=== PATIENT | male | born 1950 | race Caucasian/White ===

== ENCOUNTER 2018-01-30 11:43 | Emergency (ER) | payer MEDICARE, SELFPAY ==
[2018-01-30 11:44] VITALS: BP 148/89; PULSE 87; RESP 16; TEMP 36.7; O2SAT 97; BMI 25.7
[2018-01-30] MEDS: oxyCODONE 5 MG Tablet PO (12:41)
--- NOTE | 2018-01-30 12:50 | RAD_ITS ---
STUDY: X-RAY - LEFT FEMUR REASON FOR STUDY: Male, 67 years old. Leg pain and thigh pain. TECHNIQUE: Radiological exam, femur, minimum 2 views COMPARISON: None. FINDINGS: Normal visualized femur. Vascular calcification. RAD/Femur Min 2 Views IMPRESSION: No acute abnormality is seen. Electronically Signed: Mike Pierson MD at 13:08 EDT Tel [phone], Service support ,
--- NOTE | 2018-01-30 13:59 | ED.DCSUM_ITS ---
- ER Visit Summary Date of Service: 01/30/18 Chief Complaint: Left thigh pain History of Present Illness: The patient is a 67 M with left thigh pain for the past 5 days. Patient states last week he felt a funny sensation in his left lower back. Over the past 3-5 days he has now had intermittent shooting pain over the left anterior thigh. It does seem to be worse with movement. Patient was seen by his chiropractor but was encouraged to come to the emergency room. Although history in the computer lists AAA, patient was seen by Dr. Ngo in August of this year with no evidence of AAA being found on workup. Physical Examination: Vital signs are unremarkable. Patient sitting upright in bed no acute distress. Head neck examination is normal. Heart is regular rate and rhythm. Lung sounds are clear. Abdomen is soft and nontender. No masses appreciated. Back examination reveals no reproducible tenderness in the midline, paraspinals , or over the sciatic notch. Lower external examination reveals no reproducible tenderness over the thigh. He has full range of motion without difficulty. He has strong equal distal pulses. Test Results: Left femur x-rays show no evidence of acute abnormality. Emergency Department Course and Treatment: Patient was given 1 tab of oxycodone and Flexeril here. On repeat evaluation he does feel improved. I suspect the patient likely has sciatica with the portion of the nerve over the anterior thigh being irritated. He will be given prescriptions for oxycodone and Flexeril. Treatment Plan: [] Disposition: Discharge Impression: Left thigh pain, suspect sciatica This note was generated with [employer] dictation software. It may contain incorrect words, spelling, and punctuation that were not noted in review of the chart prior to signing ED Disposition - Plan for ED Patient: Chief Complaint: Lower Extremity Injury Referrals: Bhavesh Delgado MD [Primary Care Provider] -
--- NOTE | 2018-01-30 13:59 | ED.DEP ---
ED Disposition - Plan for ED Patient: Disposition: Home or Assisted Living Chief Complaint: Lower Extremity Injury Instructions: ED Sciatica Prescriptions: Oxycodone HCl/Acetaminophen [Percocet 5/325] 1 tablet PO Q6H PRN PRN 3 Days #12 tablet PRN Reason: Pain Cyclobenzaprine [Flexeril] 10 mg PO TID PRN #20 tab PRN Reason: Muscle Spasm Referrals: Bhavesh Delgado MD [Primary Care Provider] - 5-7 Days
[2018-01-30 14:14] VITALS: BP 143/83; PULSE 78; RESP 15; RESP 78; O2SAT 97
== END 2018-01-30 14:16 | disposition home or self-care (01) ==
PROVIDERS: Emergency Provider Emergency Medicine; Family Provider Family Medicine; PCP Family Medicine
DX: M79.652 Pain in left thigh (principal); I10 Essential (primary) hypertension; E78.00 Pure hypercholesterolemia, unspecified; Z79.82 Long term (current) use of aspirin; Z79.899 Other long term (current) drug therapy; Z72.0 Tobacco use
CPT/HCPCS: 73552; 99283

== ENCOUNTER → 2018-07-04 07:03 | Outpatient (CLI) | payer MEDICARE, SELFPAY ==
[2018-07-04 10:39] LABS: Anion Gap 9 (5-15); BUN 15 mg/dL (7-18); BUN/Creat Ratio 15.2 RATIO (10-20); Calcium,Total 9.1 mg/dL (8.5-10.1); Chloride 106 mmol/L (98-107); Cholesterol 178 mg/dL (200); Creatinine, Serum 0.99 mg/dL (0.70-1.30); EST Glomerular Filtration Rate 81 mL/min (>60); Est Glom Filt Rate - Afr Amer 98 mL/min (>60); Glucose 96 mg/dL (74-106); High Density Lipoprotein 51 mg/dL; PSA,Total - Annual Screen 1.42 ng/mL (0.00-4.00); Sodium Level 141 mmol/L (136-145); Triglycerides 98 mg/dL; Very Low Density Lipoprotein 20 mg/dL (5-40)
--- OUTSIDE RECORDS SUMMARY | 2018-08-29 11:44 | XMS RPT_ITS ---
:1950 Author Organization OHIP Care Team Providers Name Role Phone Alma De Los Santos Attending Unavailable De Los Santos, Alma Referring Unavailable De Los Santos, Alma Primary Care Unavailable De Los Santos, Alma Primary Care Unavailable Lillian Marks Attending Unavailable Cebul, Tai Attending Unavailable Cebul, Tai Attending Unavailable Cebul, Tai Attending Unavailable De Los Santos, Alma Referring Unavailable De Los Santos, Alma Primary Care Unavailable Cebul, Tai Attending Unavailable Cebul, Tai Referring Unavailable De Los Santos, Alma Primary Care Unavailable PROBLEMS PROBLEMS DATE TYPE CONDITION / CODE ATTENDING STATUS SOURCE 07/16/2018 Unknown I10 - Essential Alma De Los Santos Active [facility] (primary) Community hypertension / Hospital I10(ICD-10) Repository 01/30/2018 Unknown M54.30 - Sciatica, Lillian Marks Active [facility] unspecified side / Community M54.30(ICD-10) Hospital Repository 08/30/2017 Unknown I71.4 - Abdominal Cebul, Tai Active [facility] aortic aneurysm, Community without rupture / Hospital I71.4(ICD-10) Repository 10/12/2017 Unknown I65.23 - Occlusion Cebul, Tai Active [place] and stenosis of [facility] bilateral carotid Hospital arteries / Repository I65.23(ICD-10) 10/05/2017 Unknown 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, 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 LAB L501.1000 7-18 mg/dL Normal BUN 15 LAB L501.1100 0.70-1.30 mg/dL Normal CREAT,SERUM 0.99 Result Comment: The validity of the calculated GFR AND GFRAA in patients over 70 years has not been determined. Clinical correlation is essential. LAB L501.1110 >60 mL/min Normal EST GFR 81 Result Comment: Non- GFR Calc LAB L501.1115 >60 mL/min Normal EST GFR - AA 98 Result Comment: GFR Calc LAB L501.1300 10-20 RATIO Normal BUN/CRE 15.2 LAB L501.2200 8.5-10.1 mg/dL CA Normal 9.1 LAB L501.5300 136-145 mmol/L NA Normal 141 LAB L501.5600 3.5-5.1 mmol/L K Normal 4.0 LAB L501.5900 98-107 mmol/L CL Normal 106 LAB L501.6100 21.0-32.0 mmol/L Normal CO2 26.0 LAB L501.6200 5-15 Normal GAP 9 Performed By: #### L500.2500, L500.4100, L501.9910 #### [facility] [address] [place], [address] LIPID PROFILE Collected: 07/04/2018 Status: F Source: [place] 7:08 AM REPOSITORY Order Comment: Order Date: 01/04/18 Order Info: 0667-1 - BMP Order Info: 33414-0 - LIPID Order Info: 2857-1 - PSA TYPE CODE TESTS RESULT OUT OF RANGE REFERENCE UNITS LAB L501.4900 200 mg/dL Normal CHOL 178 Result Comment: <200 mg/dL Desirable 200-240 mg/dL Borderline >240 mg/dL High Risk LAB L501.5000 mg/dL Normal TRIG 98 Result Comment: The drugs N-Acetylcysteine and Metamizole may falsely depress this assay. Serum Triglycerides Reference Interval Normal <150 mg/dL Borderline high 150 - 199 mg/dL High 200 - 499 mg/dL Very High > or = 500 mg/dL LAB L501.6400 mg/dL Normal HDL 51 Result Comment: The drugs N-Acetylcysteine and Metamizole may falsely depress this assay. Reference Range HDL <40 mg/dL Low HDL Cholesterol HDL >or= 60 mg/dL High HDL Cholesterol LAB L501.6500 0-130 mg/dL Normal LDL 107 LAB L501.6600 5-40 mg/dL Normal VLDL 20 Performed By: #### L500.2500, L500.4100, L501.9910 #### [facility] [address] [place], [address] PSA,TOTAL - ANNUAL Collected: 07/04/2018 Status: F Source: [place] SCREEN 7:08 AM REPOSITORY Order Comment: Order Date: 01/04/18 Order Info: 0667-1 - BMP Order Info: 10363-5 - LIPID Order Info: 2857-1 - PSA TYPE CODE TESTS RESULT OUT OF RANGE REFERENCE UNITS LAB L501.9910 0.00-4.00 ng/mL Normal PSA,TOT 1.42 SCREEN Result Comment: This test was performed using the TPSA assay method for the Nimble chemistry system. Values obtained with different assay methods cannot be used interchangably. When changing PSA assays in the course of monitoring a patient, additional sequential testing should be carried out to confirm baseline values. Performed By: #### L500.2500, L500.4100, L501.9910 #### [facility] [address] [place], [address] EMERGENCY DEPARTMENT Observed: 01/30/2018 Status: F Source: [facility] SUMMARY 6:06 PM REPOSITORY [facility] Medical Records Department [address] [place] [address] Emergency Department Summary 01/30/18 1357 MR#: [id number] Acct: [id number] Name: DARREL MORAN Rep #: [id number] : 1950 67 From: Lillian Marks MD PCP: Alma De Los Santos MD Status: DEP ER - ER Visit Summary Date of Service: 01/30/18 Chief Complaint: Left thigh pain History of Present Illness: The patient is a 67 M with left thigh pain for the past 5 days. Patient states last week he felt a funny sensation in his left lower back. Over the past 3-5 days he has now had intermittent shooting pain over the left anterior thigh. It does seem to be worse with movement. Patient was seen by his chiropractor but was encouraged to come to the emergency room. Although history in the computer lists AAA, patient was seen by Dr. Ngo in August of this year with no evidence of AAA being found on workup. Physical Examination: Vital signs are unremarkable. Patient sitting upright in bed no acute distress. Head neck examination is normal. Heart is regular rate and rhythm. Lung sounds are clear. Abdomen is soft and nontender. No masses appreciated. Back examination reveals no reproducible tenderness in the midline, paraspinals, or over the sciatic notch. Lower external examination reveals no reproducible tenderness over the thigh. He has full range of motion without difficulty. He has strong equal distal pulses. Test Results: Left femur x-rays show no evidence of acute abnormality. Emergency Department Course and Treatment: Patient was given 1 tab of oxycodone and Flexeril here. On repeat evaluation he does feel improved. I suspect the patient likely has sciatica with the portion of the nerve over the anterior thigh being irritated. He will be given prescriptions for oxycodone and Flexeril. Treatment Plan: [] Disposition: Discharge Impression: Left thigh pain, suspect sciatica This note was generated with [email or web address] dictation software. It may contain incorrect words, spelling, and punctuation that were not noted in review of the chart prior to signing ED Disposition - Plan for ED Patient: Chief Complaint: Lower Extremity Injury Referrals: Alma De Los Santos MD [Primary Care Provider] - What to do if you have Problems For any increased pain, shortness of breath, bleeding, nausea or vomiting, chest pain, or any unexpected problems, contact your Primary Care Provider. Call [email or web address] ([phone]) or report to the closest Emergency Room. Call 911 if necessary. 01/30/18 0448 <Electronically signed by Lillian Marks MD> Date Lillian Marks MD Cosigner Signature (If Indicated): Date CC: Alma De Los Santos MD DISCHARGE INSTRUCTION Observed: 01/30/2018 Status: F Source: [place]IS[place] 2:01 PM REPOSITORY [facility] Medical Records Department [address] [place] [address] Discharge Instruction 01/30/18 1359 MR#: [id number] Acct: [id number] Name: DARREL MORAN Rep #: [id number] : 1950 67 From: Lillian Marks MD PCP: Alma De Los Santos MD Status: REG ER ED Disposition - Plan for ED Patient: Disposition: Home or Assisted Living Chief Complaint: Lower Extremity Injury Instructions: ED Sciatica Prescriptions: Oxycodone HCl/Acetaminophen [Percocet 5/325] 1 tablet PO Q6H PRN PRN 3 Days #12 tablet PRN Reason: Pain Cyclobenzaprine [Flexeril] 10 mg PO TID PRN #20 tab PRN Reason: Muscle Spasm Referrals: Alma De Los Santos MD [Primary Care Provider] - 5-7 Days What to do if you have Problems For any increased pain, shortness of breath, bleeding, nausea or vomiting, chest pain, or any unexpected problems, contact your Primary Care Provider. Call [facility] ([phone]) or report to the closest Emergency Room. Call 911 if necessary. 01/30/18 1401 <Electronically signed by Lillian Marks MD> Date Lillian Marks MD Cosigner Signature (If Indicated): Date CC: Alma De Los Santos MD FEMUR MIN 2 VIEWS Observed: 01/30/2018 Status: F Source: [facility]ISCO 12:24 PM REPOSITORY [facility] Imaging Services [address] [place] [address] Femur Min 2 Views MR#: [id number] Acct: [id number] Name: DARREL MORAN Rep #: [id number] : 1950 M 67 From: Mike Pierson MD PCP: Alma De Los Santos MD Status: REG ER Study: Femur Min 2 Views Date of Exam: 01/30/18 Exam# [id number] Ordering Dr: Lillian Marks MD STUDY: X-RAY - LEFT FEMUR REASON FOR STUDY: Male, 67 years old. Leg pain and thigh pain. TECHNIQUE: Radiological exam, femur, minimum 2 views COMPARISON: None. FINDINGS: Normal visualized femur. Vascular calcification. RAD/Femur Min 2 Views IMPRESSION: No acute abnormality is seen. Electronically Signed: Mike Pierson MD at 13:08 EDT Tel [phone], Service support , CC: Lillian Marks MD; Alma De Los Santos MD Cosmetic Sales Assistant: Signed SURGERY VISIT REPORT Observed: 08/31/2017 Status: F Source: [place] 11:13 AM [facility] [address] [place] [address] OFFICE VISIT Date of Service: 08/31/17 MR#: [id number] Acct: [id number] Name: DARREL MORAN Rep #: [id number] : 1950 Provider: Tai Wolff MD Age/Sex: 67/M Location: [facility] Status: Signed Intake Vital Signs08/31/17 Height 5 ft 6 in 08/31/17 Weight: 168 lb 08/31/17 Body Mass Index (BMI) 27.1 Intake Visit Reasons: AAA/ carotid yearly Director Digital Strategy Required: No Is patient in pain?: No Allergies No Known Allergies Allergy (Unverified 08/31/17 09:07) Medications ascorbic acid (vitamin C) 500 mg capsule mg PO 08/31/17 [History Confirmed 08/31/17] aspirin 81 mg tablet,delayed release 81 mg PO QDAY 08/31/17 [History Confirmed 08/31/17] atorvastatin 40 mg tablet 40 mg PO QDAY 08/31/17 [History Confirmed 08/31/17] benazepril 20 mg tablet 20 mg PO QDAY 08/31/17 [History Confirmed 08/31/17] cholecalciferol (vitamin D3) 1,000 unit capsule 1,000 unit PO ONCE 08/31/17 [History Confirmed 08/31/17] fish yxs--txp C-vit E 2,000 mg-650 mg-12 mg/2.5 g emulsion packt g PO 08/31/17 [History Confirmed 08/31/17] multivitamin capsule 1 cap PO QAM 08/31/17 [History Confirmed 08/31/17] PFSH Medical History AAA (abdominal aortic aneurysm) (Acute) Carotid stenosis, right (Acute) Hyperlipidemia (Acute) HTN (hypertension) (Chronic) Surgical History History of carotid angioplasty (Acute) Family History Father Heart disease Hypertension Mother Hypertension CAD (coronary artery disease) Social History Smoking Status: Current every day smoker alcohol intake: current alcohol intake frequency: holidays/special occasions only HPI HPI HPI: DARREL MORAN, is a 67 M who presents to the office today for surgical follow-up. He has had a previous right carotid endarterectomy. My most recent office visit with him was . On August 30, 2017 he had carotid duplex imaging and aortic duplex imaging at the [facility]. There is no evidence for any abdominal aortic aneurysm. The carotid duplex imaging demonstrates a chronically occluded left internal carotid. The patient has had a previous stroke in approximately 2005 with visual changes on the left. The patient has had a previous right carotid endarterectomy. On the current duplex imaging that right carotid bulb and internal carotid is widely patent. There is a moderate amount of irregular exophytic plaque within the right common carotid artery. This has been noted before but appeared to be rather prominent. Since the patient's previous office visit he has not had any neurologic change. He is currently in the midst of a divorce. He was strongly advised previously to cease his tobacco use. He is still smoking cigarettes at least at the rate of a half a pack per day ROS General General: No weight change, appetite, fatigue, colon cancer, breast cancer or weakness HEENT HEENT: No difficulty swallowing, eye injury, eye surgery, swollen glands or hoarseness Endo Endocrine: No thyroid disease, diabetes mellitus, thyroid cancer, Hair loss, heat intolerance or cold intolerance Skin Skin: No rash or changing moles Breast Breast: No left breast lump, right breast lump, nipple discharge, breast pain, abnormal mammogram, abnormal US or breast enlargement Musc Musculoskeletal: No back problems, arthritis, rheumatoid arthritis, gout or joint pain Cardio Cardiovascular: Yes high blood pressure; no murmur, pacemaker, heart disease, atrial fibrillation, heart attack, heart stent, palpitations, shortness of breat with exertion or chest pain Psych Psychiatric: No depression, anxiety or hearing voices Resp Respiratory: No shortness of breath, No sleep apnea, No cough, No COPD, No asthma, No emphysema, No wheezing Gastro Gastrointestinal: No abdominal pain, No nausea or vomiting, No diarrhea, No constipation, No blood in stool, No acid reflux, No hemorrhoids, No ulcers, No gallbladder problem, No black,tarry stools Juan Manuel Hematologic: No blood thinners, No blood disorders, No bleeding, No anemia, No blood clots Neuro Neurologic: No weakness Exam Neck Other: Well-healed surgical incision right neck. 3+ carotid pulses bilaterally 3/6 bruit on the left. 2/6 bruit on the right Chest Breast Palpation: No nipple discharge Cardio Rate: regular rate Rhythm: regular rhythm Heart Sounds: no murmurs Pulses: radial pulses present, femoral pulses present GI Palpation: soft, no hepatosplenomegaly, no pulsatile masses Other: No abdominal bruit Neuro Other: Patient is alert aware of his situation and place. He appears grossly neurologically intact Assessment AND Plan 1. Carotid occlusion, left I65.22 Plan Most of today's appointment was discussing maximization of his medical care I have instructed the patient of the finding of the right common carotid exophytic plaque. I do not believe that this can be addressed surgically. If this required addressing then I would recommend referral for carotid artery stenting. Based upon duplex imaging it does not fit stenosis criteria. The patient remains asymptomatic and unchanged from his previous office visit Most of this 25 minute [id number] appointment was in discussing maximization of his medical care. This included items like diet and exercise and hypertension management and hyperlipidemia management and cessation of tobacco and stress reduction He has had an opportunity to ask and have questions answered. He has no evidence of an abdominal aortic aneurysm and routine screening of his aorta will not be required at this time. I do recommend follow-up carotid duplex imaging at 1 year because of his common carotid plaque. The patient has had an opportunity to ask and have questions answered. He is aware that I will copy his primary care physician Dr. Alma De Los Santos with our discussion as well. I have strongly advised the patient cease his tobacco use. Cc: Dr. Alma Wolff M.D., F.A.C.S. Coding Level of Care Code Off vis,est,level 3 Diagnoses Carotid occlusion, left I65.22 08/31/17 1113 <Electronically signed by Tai Wolff MD> Date Tai Wolff MD Cosigner Signature: Date (if applicable) CC: Alma De Los Santos MD AAA SCREENING Observed: 08/30/2017 Status: F Source: [place] 5:11 PM REPOSITORY [facility] Cardiovascular Services [address] [place] [address] AAA Screening 08/30/17921 MR#: [id number] Acct: [id number] Name: DARREL MORAN Rep #: [id number] : 1950 67 From: Tai Wolff MD Attending Dr: Tai Wolff MD Status: REG CLI Ordering Dr: Tai Wolff MD Date: 08/30/17 Location: CVS Sex: M C Admitted: Reason For Study: AAA Aorta Measurements Aorta Doppler Measurements Proximal aorta measures1.54 X 1.99cm. in cross- Peak systolic flow velocities within the proximal sectional axis. aorta measure 82 cm/sec. Proximal aorta measures1.77cm. in longitudinal Peak systolic flow velocities within the mid axis. aorta measure 64 cm/sec. Mid aorta measures1.57 X 1.69cm. in cross- Peak systolic flow velocities within the distal sectional axis. aorta measure 67 cm/sec. Mid aorta measures1.65cm. in longitudinal axis. Distal aorta measures1.33 X 2.0cm. in cross- sectional axis. Distal aorta measures1.37cm. in longitudinal axis. Left Iliac Artery Left iliac artery measures .857 X .746 cm. in the longitudinal axis. Left iliac artery measures .995 cm. in the cross-sectional axis. Peak systolic velocity in the left iliac artery measures 267 cm/sec. Right Iliac Artery Right iliac artery measures .73 X .97 cm. in the longitudinal axis. Right iliac artery measures 1.15 cm. in the cross-sectional axis. Peak systolic velocity in the right iliac artery measures 88 cm/sec. Interpretation Summary No evidence for an abdominal aortic aneurysm wiht maximum diameter of 1.57 x 1.69cm Normal aortic flow Normal flow right iliac artery Moderate disease left iliac artery Ordering Physician: Tai Wolff Referring Physician: ALMA DE LOS SANTOS Performed By: Aria Gregg, RDCS, RVT 08/30/171710 Date Tai Wolff MD CC: Alma De Los Santos MD; Tai Wolff MD Date Dictated: 08/30/17921 Date Transcribed: 08/30/171710 Cosmetic Sales Assistant: Signed CAROTID DUPLEX Observed: 08/30/2017 Status: F Source: [place] ULTRASOUND 5:05 PM REPOSITORY [facility] Cardiovascular Services [address] [place] [address] Carotid Duplex Ultrasound 08/30/17 0944 MR#: [id number] Acct: [id number] Name: DARREL MORAN Rep #: [id number] : 1950 67 From: Tai Wolff MD Attending Dr: Tai Wolff MD Status: REG CLI Ordering Dr: Tai Wolff MD Date: 08/30/17 Location: [facility] Sex: M C Admitted: Reason For Study: CAROTID STENOSIS Rt. Velocities/BP Lt. Velocities/BP Prox CCA 88/25 cm/sec. Prox CCA 42/10 cm/sec. Mid CCA 59/17 cm/sec. Mid CCA 67/15 cm/sec. Dist CCA 67/20 cm/sec. Dist CCA 30/9 cm/sec. Prox ICA 75/30 cm/sec. Prox ECA 398/110 cm/sec. Mid ICA 94/38 cm/sec. Lt. Vert. 24/12 cm/sec. Dist ICA 101/46 cm/sec. Rt. ICA/CCA = 1.7. Prox ECA 93/20 cm/sec. Rt. Vert. 37/12 cm/sec. Right Extracranial There is homogeneous, smooth atherosclerotic plaque noted in the right common carotid artery. There is heterogeneous, irregular atherosclerotic plaque noted in the right common carotid artery. There is heterogeneous, smooth atherosclerotic plaque noted in the right internal carotid artery. There is homogeneous, smooth atherosclerotic plaque noted in the right external carotid artery. Antegrade flow is noted in the right vertebral artery. Left Extracranial There is homogeneous, smooth atherosclerotic plaque noted in the left common carotid artery. The left internal carotid artery is occluded. There is heterogeneous, irregular atherosclerotic plaque noted in the left external carotid artery. Antegrade flow is noted in the left vertebral artery. Procedure Carotid Duplex 45982. Exam performed in department. Interpretation Summary Extensive focal irregular plague at the proximal right common carotid Widely patent right carotid bulb and proximal internal carotid with <50% stenosis. Normal flow right external carotid Occluded left internal carotid. Severe stenosis left external carotid Patent and antegrade vertebrals bilaterally Ordering Physician: Tai Wolff Referring Physician: ALMA DE LOS SANTOS Performed By: Aria Gregg, POPEYE, RVT 08/30/171704 Date Tai Wolff MD CC: Alma De Los Santos MD; Tai Wolff MD Date Dictated: 08/30/1744 Date Transcribed: 08/30/171704 Cosmetic Sales Assistant: Signed ALLERGIES ALLERGIES DATE TYPE / CODE NAME / CODE REACTION SEVERITY SOURCE 01/30/2018 Drug No Known Unknown [facility] Allergy/4160 Allergies/F00 Hospital 39823(SNOMED 8201387(RXNOR Repository CT) M) ENCOUNTERS ENCOUNTERS ADMIT/DISCHARGE ACCOUNT ADMITTING ENCOUNTER LOCATION SOURCE NUMBER CLASS 07/04/2018 [id number] Ambulatory [place] 0 [facility] ing:MTLAB Repository 01/30/2018/ [id number] Emergency [place] 8 3 [facility] ing:ED Repository 08/31/2017/ [id number] Ambulatory BMSBuilding:B [facility] 8 3 MS.Pending sale to [facility] Repository 08/30/2017 [id number] Ambulatory [place] 6 [facility] ing:CVS Repository 08/30/2017 [id number] Ambulatory BMSBuilding:B [facility] 9 MS.CF.Pending sale to [facility] Repository 08/30/2017 [id number] Ambulatory BMSBuilding:B [facility] 8 MS.CF.Pending sale to [facility] Repository PAYERS PAYERS ENCOUNTER GUARANTOR PAYER SUBSCRIBER SOURCE 07/04/2018 DARREL Gotti Primary Insurance:MMO DARREL A [facility] [id number] MEDICAREPolicy SWIGARTDOB: [facility] Number: [id number] [id number] Repository [address]Qln: (330) Date:9434-47-44ME [phone] () [address] [place] [phone]: 07/04/2018 Secondary NOT GIVENUNK [facility] Insurance:SELF PAY [facility] Number: Effective Repository Date:2018-07-04 01/30/2018 DARREL A Primary Insurance:MMO DARREL Gotti [place] [id number] MEDICAREPolicy SWIGARTDOB: [facility] Number: [id number] [place], [place] [id number] Repository [address]Ici: (330) Date:6396-69-72PB [phone] (HP) [address] [place] [phone]: 01/30/2018 Secondary NOT GIVENUNK [facility] Insurance:SELF PAY [facility] Number: Effective Repository Date:2018-01-30 08/31/2017 DARREL A Primary Insurance:MMO DARREL Gotti [place] [id number] MEDICAREPolicy SWIGARTDOB: [facility] Number: [id number] [place], [place] [id number] Repository [address]Kml: (330) Date:8531-13-80NP [phone] () [address] [place] [phone]: 08/31/2017 Secondary NOT GIVENUNK [place] Insurance:SELF PAY [facility] Number: Effective Repository Date:2017-08-17 08/30/2017 DARREL A Primary Insurance:MMO DARREL Gotti [place] [id number] MEDICAREPolicy SWIGARTDOB: [facility] Number: [id number] City, [place] [id number] Repository [address]Cdj: (330) Date:2823-80-15EF [phone] (HP) [address], [place] [address]TX: 08/30/2017 Secondary NOT GIVENUNK [place] Insurance:SELF PAY [facility] Number: Effective Repository Date:2017-08-17 08/30/2017 DARREL A Primary Insurance:MMO DARREL [place] [id number] MEDICAREPolicy SWIGARTDOB: [facility] Number: [id number] City, [place] [id number] Repository [address]Zis: (330) Date:2350-66-46MY [phone] () [address], [place] [phone]: 08/30/2017 Secondary NOT GIVENUNK [place] Insurance:SELF PAY [facility] Number: Effective Repository Date:2017-08-30 08/30/2017 DARREL A Primary Insurance:MMO DARREL [place] [id number] MEDICAREUnited [facility] Number: [id number] [place], [place] [id number] Repository [address]Oiq: (330) Date:6838-23-79NN [phone] () [address], [place] [address]TU: 08/30/2017 Secondary NOT GIVENUNK [place] Insurance:SELF PAY [facility] Number: Effective Repository Date:2017-08-30
== END ==
PROVIDERS: Family Provider Family Medicine; PCP Family Medicine; Referring Provider Family Medicine; Visit Provider Family Medicine
DX: I10 Essential (primary) hypertension (principal); E78.00 Pure hypercholesterolemia, unspecified; Z12.5 Encounter for screening for malignant neoplasm of prostate
CPT/HCPCS: 36415; 80048; 80061; 84153; G0103

== ENCOUNTER → 2019-10-03 07:06 | Outpatient (CLI) | payer MEDICARE, SELFPAY ==
[2019-10-03 10:17] LABS: Anion Gap 5 (5-15); BUN 19 mg/dL (7-18); BUN/Creat Ratio 17.8 RATIO (10-20); Chloride 108 mmol/L (98-107); Cholesterol 169 mg/dL (200); Creatinine, Serum 1.07 mg/dL (0.70-1.30); EST Glomerular Filtration Rate 73 mL/min (>60); Est Glom Filt Rate - Afr Amer 89 mL/min (>60); Glucose 107 mg/dL (74-106); High Density Lipoprotein 48 mg/dL; PSA,Total - Annual Screen 1.34 ng/mL (0.00-4.00); Potassium 3.9 mmol/L (3.5-5.1); Sodium Level 138 mmol/L (136-145); Triglycerides 74 mg/dL; Very Low Density Lipoprotein 15 mg/dL (5-40)
== END ==
PROVIDERS: PCP Family Medicine; Referring Provider Family Medicine; Visit Provider Family Medicine
DX: I10 Essential (primary) hypertension (principal); Z12.5 Encounter for screening for malignant neoplasm of prostate; E78.00 Pure hypercholesterolemia, unspecified
CPT/HCPCS: 36415; 80048; 80061; 84153; G0103

== ENCOUNTER → 2020-01-29 07:45 | Outpatient (CLI) | payer MEDICARE, SELFPAY ==
--- NOTE | 2020-01-29 07:46 | CDU_ITS ---
Reason For Study: carotid stenosis Rt. Velocities/BP Lt. Velocities/BP Prox CCA 81.2/17.3 cm/sec. Prox CCA 57.5 cm/sec. Mid CCA 102.1/25.2 cm/sec. Mid CCA 35.5/8.0 cm/sec. Dist CCA 99.5/26.5 cm/sec. Dist CCA 17.3/4.5 cm/sec. Prox ICA 38.1/9.7 cm/sec. Prox ECA 441.8/115.4 cm/sec. Mid ICA 85.3/29.6 cm/sec. Lt. Vert. 35.7/13.0 cm/sec. Dist ICA 103.6/36.6 cm/sec. Rt. ICA/CCA = 1.0. Prox ECA 111.2/20.0 cm/sec. Rt. Vert. 47.6/16.8 cm/sec. Right Extracranial There is heterogeneous, smooth atherosclerotic plaque noted in the right common carotid artery. There is heterogeneous, irregular atherosclerotic plaque noted in the right internal carotid artery. There is homogeneous, smooth atherosclerotic plaque noted in the right external carotid artery. Antegrade flow is noted in the right vertebral artery. Left Extracranial There is heterogeneous, smooth atherosclerotic plaque noted in the left common carotid artery. The left internal carotid artery is occluded. There is heterogeneous, irregular atherosclerotic plaque noted in the left external carotid artery. Antegrade flow is noted in the left vertebral artery. Procedure Carotid Duplex 56473. The exam was diagnostic. Exam performed in department. Interpretation Summary Irregular heterogenous plaque at the proximal right internal carotid artery with less than 50% stenosis. <50% stenosis right external carotid Occluded left internal carotid artery >50% stenosis left external carotid Patent and antegrade vertebral arteries bilaterally No change from August 30, 2017 Ordering Physician: Tai Wolff Performed By: Emmy, Drew, RVT
== END ==
PROVIDERS: PCP Family Medicine; Referring Provider Surgery; Visit Provider Surgery
DX: I65.22 Occlusion and stenosis of left carotid artery (principal)
CPT/HCPCS: 93880

== ENCOUNTER → 2021-03-04 07:01 | Outpatient (CLI) | payer MEDICARE, SELFPAY ==
[2021-03-04 10:46] LABS: ALB/GLOB Ratio 0.9 RATIO (0.9-2.4); AST(SGOT) 17 U/L (15-37); Alanine Aminotransfer ALT/SGPT 30 U/L (16-61); Albumin, Serum 3.5 g/dL (3.2-5.0); Alkaline Phosphatase 109 U/L (45-117); Anion Gap 8 (5-15); BUN 13 mg/dL (7-18); BUN/Creat Ratio 12.3 RATIO (10-20); Calcium,Total 8.8 mg/dL (8.5-10.1); Chloride 103 mmol/L (98-107); Cholesterol 167 mg/dL (200); Creatinine, Serum 1.06 mg/dL (0.70-1.30); EST Glomerular Filtration Rate 74 mL/min (>60); Est Glom Filt Rate - Afr Amer 89 mL/min (>60); Globulin 3.9 g/dL (2.2-4.2); Glucose 98 mg/dL (74-106); High Density Lipoprotein 44 mg/dL; PSA,Total - Annual Screen 1.19 ng/mL (0.00-4.00); Potassium 4.5 mmol/L (3.5-5.1); Protein, Total 7.4 g/dL (6.4-8.2); Sodium Level 138 mmol/L (136-145); Triglycerides 114 mg/dL; Very Low Density Lipoprotein 23 mg/dL (5-40)
== END ==
PROVIDERS: PCP Family Medicine; Referring Provider Family Medicine; Visit Provider Family Medicine
DX: I10 Essential (primary) hypertension (principal); Z12.5 Encounter for screening for malignant neoplasm of prostate
CPT/HCPCS: 36415; 80053; 80061; 84153; G0103

== ENCOUNTER 2021-08-13 13:38 | Outpatient (CLI) | payer MEDICARE, SELFPAY ==
[2021-08-13 13:47] VITALS: BP 151/83; PULSE 85; RESP 16; TEMP 36.5; O2SAT 98; BMI 25.8
[2021-08-13] MEDS: 0.9% Saline Lock 10 ML Syringe IV (13:55)
[2021-08-13 14:17] VITALS: BP 152/77; PULSE 77; RESP 16; TEMP 36.6; O2SAT 98
[2021-08-13 15:02] VITALS: BP 153/92; PULSE 81; RESP 16; TEMP 36.8; O2SAT 97
== END 2021-08-13 23:59 | disposition home or self-care (01) ==
LOC: MS3OUT 13:38 → MS3 13:39
PROVIDERS: PCP Family Medicine; Referring Provider Nurse Practitioner Adult Health; Visit Provider Nurse Practitioner Adult Health
DX: Z23 Encounter for immunization (principal); U07.1 COVID-19
CPT/HCPCS: J7050; M0243; A4216; Q0244

== ENCOUNTER → 2021-12-15 | Outpatient (CLI) | payer MEDICARE, SELFPAY ==
--- NOTE | 2021-12-15 13:47 | ART_ITS ---
Reason For Study: claudication Procedure A bilateral lower extremity continuous wave Doppler with analog waveform analysis,segmental pressures,and ankle brachial indexes with exercise. Prelim called to Dr. Dunham. Left Segmental Pressures Left brachial= 124mmHg. Left thigh = 101mmHg. Left calf = 84mmHg. Left posterior tibial artery = 83mmHg. Left dorsalis pedis artery = 60mmHg. The left dorsalis pedis waveforms are monophasic. The left posterior tibial artery waveforms are monophasic. Right Segmental Pressures Right brachial= 128mmHg. Right thigh = 58mmHg. Right calf = 58mmHg. Right posterior tibial artery = 61mmHg. Right dorsalis pedis artery = 56mmHg. The right dorsalis pedis waveforms are monophasic. The right posterior tibial artery waveforms are monophasic. Indices The right ankle brachial index by the dorsalis pedis is .44. The right ankle brachial index by the posterior tibial artery is .48. The right post exercise ankle brachial index is .19. The left ankle brachial index by the dorsalis pedis is .47. The left ankle brachial index by the posterior tibial artery is .65. The left post exercise ankle brachial index is .29. VL/Lower Ext Art Exam w/ Exercise Interpretation Summary Abnormal right lower extremity resting noninvasive arterial examination with PT and DP ankle- brachial indices of 0.48 and 0.44 respectively and monophasic Doppler waveforms consistent with severe disease. Abnormal exercise index on the right with DL resting at 0.48 and immediately a fter exercise dropping to 0.19 consistent with severe disease Abnormal left lower extremity noninvasive exam throughout the low thigh calf an d infrageniculate area as on the right with a left PT and DP ankle-brachial index of 0.65 and 0.4 7 consistent with moderately severe disease. The left PT and DP ankle-brachial indices are monoph asic. The left lower extremity exercise exam is abnormal with a resting LD of 0.65 dropping to 0.29 after exercise consistent with severe disease. Indices are abnormal bilaterally already at the low thigh level suggesting bila teral aorto, iliac, femoral disease Ordering Physician: Shira Dunham Performed By: Drew Booth RVT
== END | disposition home or self-care (01) ==
PROVIDERS: PCP Family Medicine; Referring Provider Family Medicine; Visit Provider Family Medicine
DX: I73.9 Peripheral vascular disease, unspecified (principal)
CPT/HCPCS: 93924

== ENCOUNTER → 2022-01-06 | Outpatient (CLI) | payer MEDICARE, SELFPAY ==
--- NOTE | 2022-01-06 09:48 | CDU_ITS ---
Reason For Study: carotid stenosis Rt. Velocities/BP Lt. Velocities/BP Prox CCA 107.3/18.6 cm/sec. Lt. Vert. 42.5/10.6 cm/sec. Mid CCA 94.3/20.0 cm/sec. Dist CCA 130.2/24.3 cm/sec. Prox ICA 97.4/12.6 cm/sec. Mid ICA 43.2/13.5 cm/sec. Dist ICA 119.5/37.2 cm/sec. Rt. ICA/CCA = 1.3. Prox ECA 176.2/18.2 cm/sec. Rt. Vert. 42.1/12.6 cm/sec. Right Extracranial There is heterogeneous, irregular atherosclerotic plaque noted in the right common carotid artery. There is heterogeneous, irregular atherosclerotic plaque noted in the right internal carotid artery. There is heterogeneous, irregular atherosclerotic plaque noted in the right external carotid artery. Antegrade flow is noted in the right vertebral artery. Left Extracranial No flow could be demonstrated in the CCA. The left internal carotid artery is occluded. No flow could be demonstrated in the ECA. Antegrade flow is noted in the left vertebral artery. Procedure Carotid Duplex [id number]. This is a Carotid Duplex examination using B-mode, color flow and specral Doppler. The exam was diagnostic. Prelim called to Dr. Wolff. Exam performed in department. VL/Carotid Duplex Ultrasound Interpretation Summary Widely patent postoperative changes of the right carotid bulb and proximal inte rnal carotid artery with less than 50% stenosis Less than 50% stenosis right external carotid artery No flow is identified within the left common carotid artery, internal carotid a rtery, or external carotid artery. Bilateral vertebrals are patent and antegrade Previous examination of January 29, 2028 demonstrated patency of the left common c arotid and external carotid albeit with greater than 50% stenosis of the left external carotid and generalized slower flow velocities within the left common carotid Ordering Physician: Tai Wolff Performed By: Drew Booth, RVT
== END | disposition home or self-care (01) ==
LOC: CVS 09:45
PROVIDERS: PCP Family Medicine; Referring Provider Surgery; Visit Provider Surgery
DX: I65.23 Occlusion and stenosis of bilateral carotid arteries (principal); Z98.61 Coronary angioplasty status
CPT/HCPCS: 93880

== ENCOUNTER → 2022-01-11 | Outpatient (CLI) | payer MEDICARE, SELFPAY ==
--- NOTE | 2022-01-11 17:46 | CT_ITS ---
EXAM: CT ANGIOGRAPHY NECK WITHOUT AND WITH INTRAVENOUS CONTRAST CLINICAL INDICATION: arterial occlusive disease Technologist Notes hx CVA with left carotid occlusion, prior right endarterectomy, hypertension. TECHNIQUE: Routine carotid CT angiography protocol was performed without and with intravenous contrast. Nascet criteria using the distal ICAs for comparison were used for evaluation of stenoses. This CT exam was performed using one or more of the following dose reduction techniques: automated exposure control, adjustment of the mA and/or kV according to patient size, and/or use of iterative reconstruction technique. This report was created using [employer] report generation technology. MIP reconstructed images were created and reviewed. CONTRAST: IV 100mL Isovue-370 RADIATION DOSE: CTDIvol = 24.02 mGy, DLP = 1791.19 mGy-cm COMPARISON: .7 MRA neck and US of 6.09.28 FINDINGS: VASCULATURE: RIGHT COMMON CAROTID ARTERY: Unremarkable. No occlusion or significant stenosis. No dissection. RIGHT INTERNAL CAROTID ARTERY: There is mild atherosclerotic plaque formation of the origin of the right internal carotid artery with less than 50% cross sectional diameter stenosis. ALL ABOVE CRITERIA BY NASCET. No dissection. RIGHT EXTERNAL CAROTID ARTERY: Unremarkable. No occlusion. RIGHT VERTEBRAL ARTERY: Unremarkable. No occlusion or significant stenosis. No dissection. LEFT COMMON CAROTID ARTERY: Unremarkable. No occlusion or significant stenosis. No dissection. LEFT INTERNAL CAROTID ARTERY: Unremarkable. Extracranial segment is patent with no occlusion or significant stenosis. No dissection. LEFT EXTERNAL CAROTID ARTERY: Unremarkable. No occlusion. LEFT VERTEBRAL ARTERY: Unremarkable. No occlusion or significant stenosis. No dissection. GREAT VESSELS OF AORTIC ARCH: Unremarkable. Normal anatomy, patent. NECK: BONES/JOINTS: There are degenerative findings of the cervical spine. SOFT TISSUES: Unremarkable. LUNG APICES: There are scattered blebs and bullae. This can be seen in pulmonary emphysema. Bilateral apical scarring. TUBES, LINES AND DEVICES: Occluded origin of the left common carotid artery. This correlates with the patient''s history. There are multiple collateral vessels along the left neck. There is a small branch vessel which is likely an extension of the left external carotid artery that is feeding into the left cavernous carotid region. CAROTID STENOSIS REFERENCE USING NASCET CRITERIA: % ICA stenosis = (1 - narrowest ICA diameter/diameter of distal cervical ICA) x 100. Mild - <50% stenosis. Moderate - 50-69% stenosis. Severe - 70-94% stenosis. Near occlusion - 95-99% stenosis. Occluded - 100% stenosis. CT/CTA Neck W/WO Contrast IMPRESSION: 1. There is mild atherosclerotic plaque formation of the origin of the right internal carotid artery with less than 50% cross sectional diameter stenosis. ALL ABOVE CRITERIA BY NASCET. 2. Occluded origin of the left common carotid artery. This correlates with the patient''s history. There are multiple collateral vessels along the left neck. There is a small branch vessel which is likely an extension of the left external carotid artery that is feeding into the left cavernous internal carotid region. Electronically Signed: Mundo English MD at 18:55 EDT ,
--- NOTE | 2022-01-11 17:46 | CT_ITS ---
EXAM: CT ANGIOGRAPHY CHEST WITHOUT AND WITH INTRAVENOUS CONTRAST CLINICAL INDICATION: arterial occlusive disease Technologist Notes hx CVA with left carotid occlusion, prior right endarterectomy, hypertension. TECHNIQUE: Helically acquired angiography images were obtained of the chest without and with intravenous contrast. This CT exam was performed using one or more of the following dose reduction techniques: automated exposure control, adjustment of the mA and/or kV according to patient size, and/or use of iterative reconstruction technique. This report was created using [employer] report generation technology. MIP reconstructed images were created and reviewed. CONTRAST: IV 100mL Isovue-370 RADIATION DOSE: CTDIvol = 24.02 mGy, DLP = 1791.19 mGy-cm COMPARISON: None. FINDINGS: PULMONARY ARTERIES: No demonstrated pulmonary embolism or arterial dissection. AORTA: There is atherosclerotic calcification of the aortic arch with tortuosity and elongation of the aortic arch and descending thoracic aorta. Normal in caliber. No evidence of dissection. GREAT VESSELS OF AORTIC ARCH: Unremarkable. Normal in caliber. No evidence of dissection. LUNGS AND PLEURAL SPACES: There are scattered blebs and bullae. This can be seen in pulmonary emphysema. Bilateral apical scarring. No mass. No pleural effusion or thickening. No pneumothorax. HEART: There are calcifications of the coronary arteries. No pericardial effusion. No signs of right heart strain, ratio of right ventricle to left ventricle measures less than 1. MEDIASTINUM: There is a hiatal hernia. No mediastinal or hilar adenopathy. Esophagus is unremarkable. THYROID: Unremarkable. No thyroid lesions. BONES/JOINTS: There are degenerative changes of the shoulders. There are multi-level degenerative changes of the thoracic spine. No suspicious lytic or blastic abnormality. CT/CTA Chest W/WO Contrast IMPRESSION: No demonstrated pulmonary embolism or arterial dissection. Electronically Signed: Mundo English MD at 19:06 EDT ,
[2022-01-11 18:16] LABS: CREATININE FINGERSTICK < 0.9 mg/dL (0.70-1.30); EGFR FINGERSTICK > 60.0000 mL/min (>60)
== END | disposition home or self-care (01) ==
LOC: CT 17:43
PROVIDERS: PCP Family Medicine; Referring Provider Surgery; Visit Provider Surgery
DX: I70.90 Unspecified atherosclerosis (principal)
CPT/HCPCS: 70498; 71275; Q9967; A4216

== ENCOUNTER 2022-01-26 06:33 | Day surgery (SDC) | payer MEDICARE, SELFPAY ==
[2022-01-20 08:19] LABS: Hematocrit 48.4 % (40-54); Hemoglobin 16.1 g/dL (13.0-16.5); Mean Corp Hgb Conc 33.3 g/dL (32-36); Mean Corpuscular Hgb 30.6 pg (27.0-32.0); Mean Platelet Vol. 9.3 fl (6.2-12.0); Platelet Count 319 K/mm3 (150-450); RBC Distribution Width SD 50.7 fl (35.1-43.9); Red Blood Count 5.26 M/mm3 (4.6-6.2); White Blood Count 8.7 K/mm3 (4.4-11.0)
[2022-01-20 08:37] LABS: Anion Gap 7 (5-15); BUN 16 mg/dL (7-18); BUN/Creat Ratio 14.5 RATIO (10-20); Calcium,Total 9.3 mg/dL (8.5-10.1); Chloride 104 mmol/L (98-107); EST Glomerular Filtration Rate 70 mL/min (>60); Est Glom Filt Rate - Afr Amer 85 mL/min (>60); Glucose 94 mg/dL (74-106); Potassium 4.4 mmol/L (3.5-5.1); Sodium Level 134 mmol/L (136-145)
[2022-01-25 13:39] VITALS: BMI 26.9
--- NOTE | 2022-01-26 07:27 | HP.PCM_ITS ---
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: No Is patient in pain?: No Allergies No Known Allergies Allergy (Verified 12/27/21 15:16) Medications ascorbic acid (vitamin C) 500 mg capsule 500 mg PO DINNER 08/31/17 [History Confirmed 12/27/21] aspirin 81 mg tablet,delayed release 81 mg PO QDAY 08/31/17 [History Confirmed 12/27/21] atorvastatin 40 mg tablet 40 mg PO QDAY 08/31/17 [History Confirmed 12/27/21] benazepril 20 mg tablet 20 mg PO QDAY 08/31/17 [History Confirmed 12/27/21] cholecalciferol (vitamin D3) 25 mcg (1,000 unit) capsule 400 unit PO DAILY 08/31/17 [History Confirmed 12/27/21] multivitamin 1 cap PO QAM 08/31/17 [History Confirmed 12/27/21] zinc 50 mg tablet 50 mg PO DAILY 12/27/21 [History Confirmed 12/27/21] PFSH Medical History? AAA (abdominal aortic aneurysm) Carotid stenosis, right COVID-19 HTN (hypertension) Hyperlipidemia Surgical History? History of carotid angioplasty Family History?(Updated 12/27/21 @ 15:18 by Sol Monday) Father Heart disease HypertensionMother Hypertension CAD (coronary artery disease)Aunt CancerGrandmother Cancer Social History? Smoking Status:? Current every day smoker alcohol intake:? current alcohol intake frequency: holidays/special occasions only HPI HPI HPI: DARREL MORAN, is a 71 M who presents to the office today for surgical consultation regarding peripheral arterial occlusive disease.? The patient is referred by Dr Shira Dunham and a written copy of my surgical consult recommendations will return to her.? The patient is complaining of bilateral leg pain with walking.'s been ongoing for at least 6 months.? He has a history of hyperlipidemia and is on atorvastatin and low-dose aspirin and fish oil in addition to his other medications.? The patient had noninvasive bilateral extremity testing with exercise demonstrating significant bilateral extremity abnormality with suspected aortoiliac disease. The patient states that over the past 2 years he has noticed a problem as he works on [employer].? He had increased calf cramping and fatigue with walking.? He experienced COVID-19 in July 2021 and subsequently acutely thereafter has had a severe change.? He cannot walk but 30 yards and is significant burning and aching in his calves and legs.? Findings are similar bilaterally. December 15, 2021 Reason For Study: claudication Procedure A bilateral lower extremity continuous wave Doppler with analog waveform analysis,segmental pressures,and ankle brachial indexes with exercise. Prelim called to Dr. Dunham. Left Segmental Pressures Left brachial= 124mmHg. Left thigh = 101mmHg. Left calf = 84mmHg. Left posterior tibial artery = 83mmHg. Left dorsalis pedis artery = 60mmHg. The left dorsalis pedis waveforms are monophasic. The left posterior tibial artery waveforms are monophasic. Right Segmental Pressures Right brachial= 128mmHg. Right thigh = 58mmHg. Right calf = 58mmHg. Right posterior tibial artery = 61mmHg. Right dorsalis pedis artery = 56mmHg. The right dorsalis pedis waveforms are monophasic. The right posterior tibial artery waveforms are monophasic. Indices The right ankle brachial index by the dorsalis pedis is .44. The right ankle brachial index by the posterior tibial artery is .48. The right post exercise ankle brachial index is .19. The left ankle brachial index by the dorsalis pedis is .47. The left ankle brachial index by the posterior tibial artery is .65. The left post exercise ankle brachial index is .29. VL/Lower Ext Art Exam w/ Exercise Interpretation Summary Abnormal right lower extremity resting noninvasive arterial examination with PT and DP ankle- brachial indices of 0.48 and 0.44 respectively and monophasic Doppler waveforms consistent with severe disease. Abnormal exercise index on the right with LD resting at 0.48 and immediately after exercise dropping to 0.19 consistent with severe disease ? Abnormal left lower extremity noninvasive exam throughout the low thigh calf and infrageniculate area as on the right with a left PT and DP ankle-brachial index of 0.65 and 0.47 consistent with moderately severe disease. The left PT and DP ankle-brachial indices are monophasic. The left lower extremity exercise exam is abnormal with a resting LD of 0.65 dropping to 0.29 after exercise consistent with severe disease. ? Indices are abnormal bilaterally already at the low thigh level suggesting bilateral aorto, iliac, femoral disease ? Ordering Physician: Shira Dunham Performed By: Drew Booth RVT 12/15/21 [id number] Tai Wolff MD ROS General General: Yes fatigue; No weight change, appetite, colon cancer, breast cancer or weakness HEENT HEENT: No difficulty swallowing, eye injury, eye surgery, swollen glands or hoarseness Endo Endocrine: No thyroid disease, diabetes mellitus, thyroid cancer, Hair loss, heat intolerance or cold intolerance Skin Skin: No rash or changing moles Musc Musculoskeletal: No back problems, arthritis, rheumatoid arthritis, gout or joint pain Cardio Cardiovascular: Yes high blood pressure; No murmur, pacemaker, heart disease, atrial fibrillation, heart attack, heart stent, palpitations, shortness of breat with exertion or chest pain Psych Psychiatric: No depression, anxiety or hearing voices Resp Respiratory: Yes shortness of breath, No sleep apnea, Yes cough, No COPD, No asthma, No emphysema and No wheezing Gastro Gastrointestinal: No abdominal pain, No nausea or vomiting, No diarrhea, No constipation, No blood in stool, No acid reflux, No hemorrhoids, No ulcers, No gallbladder problem and No black,tarry stools Juan Manuel Hematologic: No blood thinners, No blood disorders, No bleeding, No anemia and No blood clots Neuro Neurologic: No system reviewed and no additional complaints, except as documented, No as per HPI, No abnormal gait, No abnormal hearing, No abnormal movements, No abnormal speech, No behavioral changes, No burning sensations, No confusion, No convulsions, No disequilibrium, No dizziness, No localized weakness, No frequent falls, No headache(s), No lack of coordination, No loss of vision, No memory loss, No numbness, No other visual disturbances, No radicular pain, No restless legs, No sensory deficit, No syncope, No tingling, No tremor(s), No weakness and No other Exam Const General: cooperative, comfortable and no acute distress Nutritional Appearance: overweight Orientation: alert and awake [facility] Head: normal to inspection Eyes General: appearance normal, both eyes and all related structures Neck Other: Well-healed incision right neck Chest Other: Increased anterior posterior diameter Resp Effort & Inspection: normal respiratory effort Auscultation: clear to auscultation bilaterally Cardio Rate: regular rate Rhythm: regular rhythm Other: Bilateral radials 3+.? Bilateral brachials 3+.? Bilateral carotids 3+.? No carotid bruits Bilateral femoral, popliteal, DP, PT is not palpable Bilateral femorals are Doppler audible GI Palpation: soft and no hepatosplenomegaly Musc Cervical Spine: normal cervical lordosis Skin General: no rashes or lesions noted Neuro General: patient alert and patient awake Extrem Other: Dependent rubor bilaterally, diminished capillary refill, toes cool to touch, no ulcerations Psych Appearance: grossly normal Assessment and Plan Assessment and Plan (1) Carotid artery stenosis: ?Status:?Acute ?Qualifiers: ?Laterality:?left? Qualified Code(s):?I65.22 - Occlusion and stenosis of left carotid artery (2) PAOD (peripheral arterial occlusive disease): ?Status:?Acute ?Plan - Dr. Tai Wolff MD: History of left carotid occlusion and right carotid enterectomy.? The patient is scheduled early in January to have follow-up carotid duplex imaging Significant bilateral extremity arterial occlusive disease with vascular claudication.? Findings are consistent with severe aortoiliac occlusive disease.? I cannot palpate either femoral pulses though I am able to detect Doppler signals. I propose for him a abdominal pelvic bilateral extremity arteriogram.? Hopefully by utilizing ultrasound will be able to gain retrograde access through each groin.? I have cautioned the patient that we may require brachial access.? I believe that if brachial access is required that this likely would be preferable over radial access due to the complexity of intervention that might be required. He has had an opportunity to ask and have questions answered.? I have again vigorously encouraged the patient to cease his tobacco use. Post procedure we might consider Xarelto 2.5 mg orally twice daily with the addition of 81 mg aspirin. Appreciate the ongoing opportunity of assisting with the surgical care Copy: Dr Shira Wolff M.D., F.A.C.S. I have re-examined the patient. There are no clinical changes since date of exam. Tai Wolff M.D., F.A.C.S.
--- NOTE | 2022-01-26 10:05 | PCM.OPRPT ---
Problems Associated Problem List Diagnoses (1) PAOD (peripheral arterial occlusive disease): Report of Operation Date of Procedure: 01/26/22 Pre-Operative Diagnosis: Multi segmental bilateral extremity arterial occlusive disease with suspected iliofemoral disease Post-Operative Diagnosis: Bilateral iliofemoral disease with additional multifocal lower extremity arterial occlusive disease Surgery/Procedure Performed:: Abdominal pelvic bilateral lower extremity arteriogram Right common iliac 6 x 40 mm Powerflex angioplasty Right external iliac 6 x 40 mm Powerflex angioplasty Description of Surgical Findings:: Timeout and informed consent was obtained. 71-year-old gentleman was taken to the special procedures lab placed upon the table. Bilateral groins were sterilely prepped and draped. He received 50 mcg of fentanyl and 2 mg of Versed is intravenous sedation. Under ultrasound guidance the left common femoral artery was identified 2% lidocaine was instilled as a local anesthetic throughout the procedure a total of 14 cc was used. Local was instilled under ultrasound guidance and a micropuncture needle was inserted into the visualized left common femoral artery however there was absolutely no arterial return. I was able to visualize somewhat more cephalad however at that point I felt that the vessel actually became the external iliac and did not feel comfortable gaining access at that spot. I then inspected the right groin. Was able to identify the right common femoral artery and under ultrasound guidance injected local medicine then used a micropuncture needle was able to gain access to the proximal right common femoral artery. Micropuncture wire micropuncture sheath 5 Nepalese short sheath was placed and using an old angled Glidewire placed a 5 Nepalese universal flush catheter into the abdominal aorta. AP aortogram was obtained using Visipaque contrast diluted because of the nationwide shortage at [facility] 10 cc a second for 10 cc. I then withdrew the flush catheter to the left common iliac and obtain pelvic images then I was able to advance the flush catheter over stiff Glidewire I advanced that flush catheter down to the distal left external iliac and then I obtained static views of the left lower extremity. Having achieved that I exchanged the right femoral 5 Nepalese sheath for 6 Nepalese sheath. Patient received 8000 units of heparin and then during the procedure after ACT measurements received an additional 1000 units of heparin. Performed 6 x 40 mm Powerflex angioplasty of the right proximal common iliac artery and of the right external iliac artery. I then through the sheath additionally obtain static views of the right lower extremity. Total contrast used 75 cc. He tolerated the procedure well. He was taken back to the recovery area in satisfactory addition without apparent complication. Images demonstrate a irregular but patent abdominal aorta with 80% stenosis of the right renal artery orifice. Left renal artery appears patent. 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 Approximately 50% stenosis of the proximal portion of the right common iliac artery. 70% stenosis of the origin of the right internal iliac artery over about 2 cm. There was diffuse disease of the right external iliac artery. Occlusion of the right common femoral artery with subsequent refill of the right profundofemoral artery and then about 4 to 6 cm more distally refill of the right superficial femoral artery. Superficial femoral artery is patent down to Tadeo's canal where there appears to be a focal area of calcific 80% stenosis. In the distal right superficial femoral artery proximal popliteal there is a evidence of diffuse calcific disease causing stenosis. The popliteal then remains patent and there is initial flow through the trifurcation with the right posterior tibial being more dominant in the anterior tibial fading by the distal calf. There is felt to be likely 60% stenosis origin of the left common iliac artery and about 40% stenosis of the proximal left external iliac artery. The left internal iliac artery is patent though there appears to be some tortuosity and overlap rather than slight aneurysmal change. The left common femoral artery again is occluded. The left profundofemoral artery and superficial femoral artery appeared to refill in proximity to each other. The left superficial femoral artery appears patent. In the distal left superficial femoral artery there is a focal area of calcific disease causing about 80% stenosis. The popliteal and trifurcation is patent with 60% stenosis of the origin of the left anterior tibial artery. The tibioperoneal trunk is patent and the left posterior tibial artery is the dominant vessel to the ankle. Subsequent to the balloon angioplasty of the right common iliac and external iliac there is improved luminal diameter. Very slight nonflow restricting dissection of the distal right external iliac. I have elected not to perform any additional treatment of the right iliac system i.e. avoided placing a stent due to the limited outflow via collaterals. I anticipate that the patient may well be a candidate for bilateral open common femoral endarterectomies with extension involving bilateral superficial femoral arteries and treatment of bilateral profundofemoral arteries as well. It might be reasonable at that setting via retrograde approach to address the proximal left common iliac artery and proximal left external iliac artery with a endovascular technique. Tai Wolff M.D., F.A.C.S. Surgeon: Tai Wolff Type of Anesthesia: IV Sedation and Local
== END 2022-01-26 13:15 | disposition home or self-care (01) ==
LOC: CLSP 06:33
PROVIDERS: PCP Family Medicine; Referring Provider Surgery; Visit Provider Surgery
DX: I73.9 Peripheral vascular disease, unspecified (principal); I71.4 Abdominal aortic aneurysm, without rupture; E78.5 Hyperlipidemia, unspecified; F17.200 Nicotine dependence, unspecified, uncomplicated; Z86.16 Personal history of COVID-19; I65.22 Occlusion and stenosis of left carotid artery; I10 Essential (primary) hypertension; Z79.82 Long term (current) use of aspirin; Z79.899 Other long term (current) drug therapy
CPT/HCPCS: 36200; 36245; 36246; 36415; 37220; 37222; 75625; 75716; 76937; 80048; 85027; 93005; 99152; 99153; C1760; J7030; J7040; Q9967; C1725; C1769

== ENCOUNTER → 2022-02-11 | Outpatient (CLI) | payer MEDICARE, SELFPAY ==
[2022-02-11 07:56] LABS: Creatinine, Serum 0.95 mg/dL (0.70-1.30); EST Glomerular Filtration Rate 84 mL/min (>60); Est Glom Filt Rate - Afr Amer 101 mL/min (>60)
== END | disposition home or self-care (01) ==
LOC: LAB 05:50
PROVIDERS: PCP Family Medicine; Referring Provider Surgery Trauma Surgery; Visit Provider Surgery Trauma Surgery
DX: I73.9 Peripheral vascular disease, unspecified (principal)
CPT/HCPCS: 36415; 82565

== ENCOUNTER → 2022-02-17 | Outpatient (CLI) | payer MEDICARE, SELFPAY ==
--- NOTE | 2022-02-17 07:40 | CT_ITS ---
STUDY: CTA OF THE ABDOMINAL AORTA AND BILATERAL LOWER EXTREMITIES REASON FOR EXAM: Male, 71 years old. Aorto-iliac and common femoral occlusive disease RADIATION DOSAGE (If Supplied By Facility): CTDIvol = ( 7.18 ) mGy, DLP = ( 977.83 ) mGycm TECHNIQUE: Axial CT angiography multi-detector data acquisition was obtained from the in the liver to the ankles following intravenous administration of IV 100mL Isovue-370. Axial images and MIP images were reconstructed from the axial data set. Post-processing of the angiographic images was performed, with multiplanar reformation and 3D reconstruction. Individualized dose optimization techniques were used for this CT. TECHNICAL QUALITY: Good COMPARISON: None. Descriptors of Narrowing: None (0%) Mild (< 50%) Moderate (50-70%) Severe (70-90%) Subtotal/Total Occlusion (90-100%) Non-Evaluable (technically non-diagnostic FINDINGS: Mild degree of bibasilar scarring. Bullous changes. Coronary artery calcification. Small hiatal hernia. Fatty infiltration of the liver. Sigmoid diverticulosis. Abdominal aorta: Diffuse atherosclerotic plaque formation of the abdominal aorta. Mild degree of mural thrombus. No significant narrowing is seen. Celiac and superior mesenteric arteries: Atherosclerotic plaque formation at the origin of the celiac artery and superior mesenteric artery. Inferior mesenteric artery: Not seen Right renal artery(arteries): Mild degree of plaque formation at the origin of the right renal artery. Left renal artery(arteries): Back formation at the origin of the left renal artery. Right common iliac artery: Extensive calcific plaque. No significant stenosis seen. Right external iliac artery: Calcific plaque. Right internal iliac artery: Calcific plaques Left common iliac artery: Extensive calcific plaque with focal stenoses. Left external iliac artery: Calcific plaques. Left internal iliac artery: Calcific plaques RIGHT LOWER EXTREMITY Right common femoral artery: Focal occlusion at the origin of the right common femoral artery. Extensive plaque formation along its distal portion. Right profundus femoris: No demonstrated narrowing. Right superficial femoral: Extensive plaque in the proximal portion of the superficial femoral artery. Right popliteal artery: Plaque formation in the popliteal artery. Right tibioperoneal trunk: No demonstrated narrowing. Right anterior tibial artery: No demonstrated narrowing. Right posterior tibial artery: No demonstrated narrowing. Right peroneal artery: Nonstenotic plaque in its origin. LEFT LOWER EXTREMITY Left common femoral artery: Focal occlusion at the origin of the common femoral artery. Left profundus femoris: No demonstrated narrowing. Left superficial femoral: Multiple calcific plaques with focal tight stenoses at its origin. Left popliteal artery: Scattered nonocclusive atherosclerotic plaques. Left tibioperoneal trunk: Scattered calcific plaques. Left anterior tibial artery: Calcific plaque at its origin with mild stenoses. Left posterior tibial artery: No demonstrated narrowing. Left peroneal artery: No demonstrated narrowing. CT/CTA Abd w/Runoff W/WO Contrast IMPRESSION: I stenosis at the origin of both the right and left common femoral arteries with diffuse bilateral calcific plaques as described Electronically Signed: Mike Pierson MD at 9:03 EDT ,
== END | disposition home or self-care (01) ==
LOC: CT 07:39
PROVIDERS: PCP Family Medicine; Referring Provider Surgery Trauma Surgery; Visit Provider Surgery Trauma Surgery
DX: I74.09 Other arterial embolism and thrombosis of abdominal aorta (principal); I73.9 Peripheral vascular disease, unspecified
CPT/HCPCS: 75635; Q9967

== ENCOUNTER 2022-03-16 05:16 | Inpatient (IN) | payer MEDICARE, SELFPAY ==
--- NOTE | 2022-03-09 06:09 | EKG12_ITS ---
Test Reason : PRE OP Blood Pressure : / mmHG Vent. Rate : 089 BPM Atrial Rate : 089 BPM P-R Int : 160 ms QRS Dur : 086 ms QT Int : 372 ms P-R-T Axes : 085 -28 013 degrees QTc Int : 452 ms Normal sinus rhythm Normal ECG Confirmed by AMEENA DE JESUS, ALANNA ([id number]), medical transcription editor NIYA FRIAS ([id number]) on 03/09/2022 12:49:04 PM Referred By: Nathan Patel Confirmed By:ALANNA LINDQUIST MD
[2022-03-09 07:19] LABS: Absolute Lymphocyte Count 2.07 X10^3/uL (0.83-4.51); Absolute Neutrophil Count 4.8 X10^3/uL (2.0-7.7); Basophil# 0.08 X10^3/uL; Eosinophil# 0.26 X10^3/uL; Eosinophils% 3.4 % (0-5); Hematocrit 48.3 % (40-54); Hemoglobin 15.7 g/dL (13.0-16.5); Lymphocyte # 2.07 X10^3/ul (0.83-4.51); Lymphocyte % 26.8 % (19-41); Mean Corp Hgb Conc 32.5 g/dL (32-36); Mean Corpuscular Hgb 31.1 pg (27.0-32.0); Mean Corpuscular Volume 95.6 fL (80-94); Mean Platelet Vol. 9.4 fl (6.2-12.0); Monocyte# 0.52 X10^3/uL; Monocyte% 6.7 % (0-10); NRBC Flagged by Analyzer 0 % (0-5); Neutrophil # 4.75 X10^3/uL (2.7-7.7); Neutrophil % 61.6 % (47-70); Platelet Count 337 K/mm3 (150-450); RBC Distribution Width CV 15.6 % (11.6-14.6); RBC Distribution Width SD 55.2 fl (35.1-43.9); Red Blood Count 5.05 M/mm3 (4.6-6.2); White Blood Count 7.7 K/mm3 (4.4-11.0)
[2022-03-09 08:01] LABS: Anion Gap 6 (5-15); BUN 13 mg/dL (7-18); BUN/Creat Ratio 11.3 RATIO (10-20); Calcium,Total 9.1 mg/dL (8.5-10.1); Chloride 103 mmol/L (98-107); Creatinine, Serum 1.15 mg/dL (0.70-1.30); EST Glomerular Filtration Rate 67 mL/min (>60); Est Glom Filt Rate - Afr Amer 81 mL/min (>60); Glucose 103 mg/dL (74-106); Potassium 4.5 mmol/L (3.5-5.1); Sodium Level 136 mmol/L (136-145)
[2022-03-16] VITALS (23 sets, daily range): BP systolic 93–164; BP diastolic 51–95; PULSE 77–104; RESP 11–25; TEMP 36–36.7; O2SAT 89–99; BMI 24.2; BMI 25.0
--- NOTE | 2022-03-16 07:23 | HP.PCM_ITS ---
[facility] - General General Date of Admission: 03/16/22 HPI Narrative DARREL MORAN, is a 71 M who presented for bilateral lifestyle limiting claudication refractory to conservative tx. He underwent aortogram, bilateral runoff that revealed bilateral common femoral occlusions and bilateral external iliac stenosis. Both legs are equally symptomatic and the common iliac origins are free of significant stenosis. He is currently on ASA and Plavix. COUNT INCLUDES THE [facility] Medical History Alcohol use Bilateral carotid artery stenosis COVID-19 (08/11/21) Easy bruising Essential hypertension GERD (gastroesophageal reflux disease) High cholesterol Hyperlipidemia Peripheral vascular disease of extremity with claudication Stroke/cerebrovascular accident Tobacco abuse Wears glasses Home Medications ascorbic acid (vitamin C) 500 mg capsule 500 mg PO DINNER SUPPLEMENT 08/31/17 [History Last Taken 03/15/22] aspirin 81 mg tablet,delayed release 81 mg PO QDAY HEART 08/31/17 [History Last Taken 03/16/22] atorvastatin 40 mg tablet 40 mg PO QDAY CHOLESTEROL 08/31/17 [History Last Taken 03/15/22] benazepril 20 mg tablet 20 mg PO QDAY HYPERTENSION 08/31/17 [History Last Taken 03/15/22] cholecalciferol (vitamin D3) 25 mcg (1,000 unit) capsule 400 unit PO DAILY SUPPLEMENT 08/31/17 [History Last Taken 03/15/22] multivitamin 1 cap PO QAM SUPPLEMENT 08/31/17 [History Last Taken 03/15/22] zinc 50 mg tablet 50 mg PO DAILY SUPPLEMENT 12/27/21 [History Last Taken 03/15/22] clopidogrel 75 mg tablet (Plavix) 75 mg PO DAILY HEART 03/08/22 [History Last Taken 03/16/22] omega 2-huq-vlj-fish oil 60 mg-90 mg-500 mg capsule (Fish Oil) 1 cap PO DAILY SUPPLEMENT 03/08/22 [History Last Taken 03/15/22] Allergy/AdvReac Type Severity Reaction Status Date / Time No Known Allergies Allergy Verified 03/16/22 06:10 Family History Father Heart disease Hypertension Sudden cardiac , Onset Age: 48 Mother Hypertension CAD (coronary artery disease) Aunt Cancer Grandmother Cancer Surgical History History of angioplasty of peripheral vessel (01/26/22) History of carotid angioplasty History of right-sided carotid endarterectomy (2013) Social History Smoking Status: Current every day smoker tobacco type: cigarettes Tobacco: How many years used: 51 alcohol intake: current alcohol intake frequency: a few times a week Alcohol type: beer ROS Constitutional Constitutional: Denies change in weight, chills or fever(s) Cardiovascular Cardiovascular: Reports claudication; Denies chest pain or edema Respiratory/Chest Respiratory/Chest: Denies cough, shortness of breath at rest or shortness of breath with exertion Genitourinary Genitourinary: Denies hematuria Integumentary Integumentary: Denies wounds Neurologic Neurologic: Denies focal weakness or weakness Vital Signs Vital Signs Vital Signs: 03/16/22 06:11 03/16/22 06:11 Temperature 97.9 F Temperature Source Temporal Pulse Rate 83 Respiratory Rate 18 Respiratory Pattern Normal Blood Pressure 127/74 H Blood Pressure Mean 91 Blood Pressure Source Monitor Blood Pressure Position Semi-Fowlers Blood Pressure Location Left Arm Pulse Ox 96 Oxygen Delivery Method Room Air Weight Weight: 149 lb 14.629 oz Body Mass Index (BMI) 24.2 Physical Exam Const alert, oriented x3, no apparent distress and healthy appearing General Appearance: cooperative; Negative for combative or lethargic Orientation / Consciousness: awake Exam Limitations: no limitations HEENT Head and Scalp: normocephalic and atraumatic Eyes EOMs intact bilaterally General Eye: normal appearance of both eyes Neck full ROM and no lymphadenopathy General: trachea midline Resp normal respiratory effort and no use of accessory muscles Effort and Inspection: Negative for labored, stridor or audible wheezes Cardio regular rate and regular rhythm Peripheral Pulses: brachial pulses present and radial pulses present Extremity full ROM and no clubbing, cyanosis or edema; Negative for normal capillary refill Skin no rashes or lesions noted and no wounds Neuro oriented x3, CN's II-XII intact bilaterally, no focal motor deficits and no sen sanjuanita deficits noted Psych thought process normal, cooperative, affect normal, speech normal and activity/motor behavior normal Results Lab / Micro Data Result Diagrams: 03/09/22 05:53 03/09/22 05:53 Assessment & Plan Assessment/Plan (1) Peripheral vascular disease of extremity with claudication: PLAN: -left femoral endarterectomy, left external iliac stent, possible sartorius flap -risks, benefits, alternatives discussed, patient agrees to proceed
[2022-03-16] MEDS: Cefazolin 2 GM in 0.9% Normal Saline 100 ML IV (07:27)
--- NOTE | 2022-03-16 07:30 | PLAQ_PTH ---
PATIENT: DARREL MORAN LOC: ICU U#:[id number] AGE/SX: 71/M ROOM: [place] [address] RE03/16/[address]: Dr. Nathan Patel MD : 1950 BED: 1 DIS: 03/17/2022 SPEC #: [id number] RECD: 03/16/22 14:34 STATUS: CONG REEarnest #: [id number] HUMZA: 03/16/22 07:[address]: Nathan Patel DEPT: SURGICAL PATHOLOGY RECD BY: Mary Contreras ENTERED: 03/17/22 07:49 SP TYPE: PLAQUE OTHR DR: Dr. Shira Dunham MD Tissues: PLAQUE Procedures: Surgery Specimen Level I HEADER OPERATION: Femoral endarterectomy, common iliac stents, Sartorius flap PRE-OP DIAGNOSIS: Peripheral vascular disease of extremity with claudication left leg TISSUE SUBMITTED: Left femoral plaque (gross exam only) MICROSCOPIC DIAGNOSIS Left femoral plaque, endarterectomy: Atherosclerotic tissue with extensive calcifications (plaque). SARAH 03/22/22 GROSS DESCRIPTION Received in fixative is one container labeled with the patient's name and designated left femoral plaque. The specimen consists of two tubular segments of partially opened brandt, indurated tissue measuring 2 and 4.5 cm in length and 0.5 to 1.5 cm in diameter. The specimen cuts with gritty sensation. The lumen is almost completely obliterated. Bartacker sections are submitted in one cassette after decalcification. / SJ:rg 03/17/2022 TC:5 CPT:02051, 17463
[2022-03-16] MEDS: Heparin 10,000 UNITS/10 ML Vial 10000 UNITS (07:55)
[2022-03-16] MEDS: Heparin Injection (Vial) 5,000 UNIT/ML VIAL 5000 UNIT ×2 (08:18→09:33)
[2022-03-16] MEDS: Bupivacaine 0.25% 30 ML Vial (08:18)
--- NOTE | 2022-03-16 10:36 | RAD_ITS ---
PROCEDURE: ANGIOGRAM - REASON FOR EXAM: Male, 71 years old. LT FEMORAL ENDARTECTOMY, COMMON ILIAC STENTS FLUOROSCOPY TIME (if supplied): (4 minutes 45 seconds) minutes/seconds. 12 images were obtained. Intraoperative imaging provided for left femoral endarterectomy and common iliac arterial stent. RAD/Pelvis 1 or 2 Views IMPRESSION: Intraoperative imaging provided for left femoral endarterectomy and common iliac arterial stents. Electronically Signed: Mike Pierson MD at 12:09 EDT ,
[2022-03-16] MEDS: Lactated Ringers 1,000 ML 15 ML IV (11:00)
--- NOTE | 2022-03-16 13:29 | PCM.OPRPT ---
Report of Operation Date of Procedure: 03/16/22 Pre-Operative Diagnosis: atherosclerosis with claudication, left lower extremity Post-Operative Diagnosis: same Surgery/Procedure Performed:: 1) left common femoral endarterectomy with modifier 22 2) left external iliac angioplasty and stent 3) left sartorius flap Surgeon: Nathan Patel Type of Anesthesia: General Specimen's removed: plaque, subacute thrombus Estimated Blood Loss (mL): 150 Description of Procedure: HPI: Patient is a 71-year-old male with a longstanding bilateral lower extremity claudication refractory to conservative therapy. He had prior traditional angiography and CT angiography which revealed moderate bilateral external iliac artery disease and total occlusion of bilateral common femoral arteries. He presents now for left lower extremity revascularization with planned endarterectomy and external iliac artery stent as well as a prophylactic sartorius flap. A modifier 22 was applied to the femoral endarterectomy given need for extensive dissection onto the superficial femoral artery as well as patch extending well onto the superficial femoral artery adding an additional 1 hour of surgical time. Description of procedure: Irinatan informed consent and verification correct patient procedure site patient was taken the operating where he was placed under anesthesia. He was then positioned prepped and draped in usual sterile fashion a timeout was performed. Oblique incision was made over the palpable nonpulsatile left common femoral artery. Bovie electrocautery was then used to dissect down through subcutaneous tissue and self-retaining retractors put in position. Further dissection was carried down to the femoral sheath and the retractors placed deeper in the wound. We then incised the femoral sheath vertically and dissected cephalad to the inguinal ligament. The inguinal ligament was then freed along its inferior border along cephalad retraction. An Omni retractor was then brought onto the field and anchored to the bed and the renal retractor used to retract the inguinal ligament and facilitate proximal exposure. Neck sharp dissection was used to dissect up onto the distal external iliac artery two a point which are soft and clampable. A right angle was then used to place a vessel loop around the distal external iliac artery as well as sidebranches individually. Next we carried our dissection distally down to the proximal superficial femoral artery and had to dissect several centimeters onto the SFA to find a soft portion. A right angle was used to place a vessel loop at this location and we turned our attention to the profunda. Sharp dissection was used to dissect down on the profundus to the secondary branches which were soft and clampable. We then used a right angle to placed Vesseloops around each branch. Patient was then heparinized and allowed us to care for 3 minutes and an ACT performed. Further heparin dosing was performed at 30-minute intervals based on ACT. The vessel was then occluded with Vesseloops and atraumatic clamp for the distal external echo artery. Longitudinal arteriotomy was created with 11 blade and extended Kessler scissors from the origin of the SFA to the distal external leg artery. We then used a freer elevator to perform her endarterectomy with the satisfactory endpoint of the origin of the profunda. Unfortunately the superficial femoral artery had significant plaque remaining so the arteriotomy was lengthened further to find a satisfactory endpoint. Once a satisfactory endpoint was obtained the lumen was flushed and heparinized saline and the endpoints tacked with 7-0 Prolene on the SFA and profunda. A bovine pericardial patch was then brought on the field and prepped for manufactures instructions. It was then secured in position using a 6-0 Prolene in a running fashion. Prior to completing the suture line the vessels were back flushed and after completing suture line the clamps were removed and satisfactory stasis was noted. There is a weakly palpable pulse across the common femoral artery and nonobstructive Doppler signals in the SFA and the profunda. We then turned our attention to the iliac stent portion of the procedure. Using my puncture needle and wire reaccessed the midportion of the patch in retrograde fashion and this was exchanged for micropuncture sheath. Through the micropuncture sheath injection iliofemoral angiogram was performed revealing satisfactory placement with no dissection. Through the micro sheath a Magic wire was advanced and abdominal aorta and the micropuncture sheath exchanged out for a 7 Occitan marker tip sheath. Through the micro tip sheath a marker pigtail catheter advanced obtaining measurement for the length of the iliac stent. A 7 mm x 100 mm length Cook Zil[place] PTX paclitaxel self-expanding stent was brought in the field and prep for senior research manager's instructions. This then advanced in the position was satisfactory overlap onto normal vessel at the femoral head and proximally into the distal common iliac artery which was relatively free of disease. This was then deployed and postdilated with a 6 mm x 80 angioplasty balloon to nominal along the entirety of the stent. Completion angiography revealed satisfactory resolution of the stenosis with no extravasation or dissection and brisk flow across the iliofemoral vessels. The vessels were then clamped and the sheath and wire removed. The puncture site was repaired with 5-0 Prolene U stitch and when the clamps removed satisfactory and the stasis was noted. Opal topical hemostatic was then applied to the vessel bed and surrounding tissue. Heparins and reversed with 25 mg of protamine and we turned our attention to sartorius flap. Bovie electrocautery used to dissect laterally to the anterior aspect of the sartorius muscle. We then carried the dissection cephalad to the insertion in the anterior superior iliac spine. Combination of Bovie and blunt dissection was used to free the lateral border of the sartorius as well as the superior aspect on the medial border. We then took down the attachments of the ASIS and transpose the muscle medially to cover the femoral vessels without any tension. The operative site was then inspected for hemostasis which was satisfactory the vessel likewise was inspected and satisfactory stasis was noted. The remainder of the Opal hemostatic agent was applied to the wound bed and the sartorius anchored with interrupted 2-0 Vicryl. The incision was then closed with 3-0 Vicryl for Monocryl and Dermabond for the skin. A Prevena wound VAC was then applied and the patient awake from anesthesia and taken to the recovery room. Grafts/Implants Used: Xavier Garcia PTX 7x100 Complications None
[2022-03-16 13:58] LABS: ACT Activated Clotting Time 132 sec (74-137)
[2022-03-16 13:59] LABS: ACT Activated Clotting Time 219 sec (74-137)
[2022-03-16 14:01] LABS: ACT Activated Clotting Time 214 sec (74-137)
[2022-03-16 14:01] LABS: ACT Activated Clotting Time 208 sec (74-137)
[2022-03-16 14:02] LABS: ACT Activated Clotting Time 202 sec (74-137)
--- NOTE | 2022-03-16 14:04 | EX.PCM.CONCC ---
Assessment & Plan Assessment/Plan (1) Peripheral vascular disease of extremity with claudication: PLAN: Plan RECOMMENDATIONS: 1. Continue aspirin, Plavix and Lovenox as ordered. 2. PRN antihypertensives. 3. Clear liquid diet as ordered. 4. Early mobilization as tolerated. 5. Wean supplemental oxygen to maintain saturations at or above 90%. Encourage incentive spirometer use. IMPRESSIONS: 1. Atherosclerosis with claudication now POD #0 status post left common femoral endarterectomy with left external iliac angioplasty and stent Continue routine postoperative care per vascular surgery recommendations including aspirin, Plavix and prophylactic Lovenox. Treat systolic pressures in excess of 140 mmHg with as needed antihypertensives as ordered. Clear liquid diet as tolerated. Implement early mobilization as tolerated. If stable overnight, arterial line can be removed in the morning. 2. Chronic tobacco dependency I personally spent 3 minutes discussing the deleterious effects of continued tobacco use with the patient, including modalities which could be utilized to achieve a smoke-free lifestyle. Nicotine replacement therapy can be offered to the patient while admitted to the hospital. 3. Personal history of hypertension and hyperlipidemia Continue home medications as indicated. This note was generated with [employer] dictation software. It may contain incorrect words, spelling, and punctuation that were not noted in checking the note before signing. HPI Consult Data Date of Consult: 03/17/22 HPI Narrative Reason for Consultation: Postoperative ICU management HPI Narrative: The patient is a 71-year-old male, with a history as outlined below, who presented for elective outpatient left common femoral endarterectomy and left external iliac angioplasty and stent secondary to symptomatic claudication which was refractory to conservative management. Prior aortogram demonstrated bilateral femoral occlusions and bilateral external iliac stenosis. The patient has been maintained on aspirin and Plavix. The patient surgical intervention was uncomplicated with 150 mL of estimated blood loss intraoperatively. Preprocedure CBC and chemistry profile were unremarkable. The patient does have baseline hypertension, which is medically managed with benazepril on an outpatient basis. The patient is hemodynamically stable and currently maintaining saturations in the high 90s on nasal cannula supplemental O2. The patient does have a chronic tobacco abuse history but is making strides towards cutting back. [facility] Medical History Alcohol use Bilateral carotid artery stenosis COVID-19 (08/11/21) Easy bruising Essential hypertension GERD (gastroesophageal reflux disease) High cholesterol Hyperlipidemia Peripheral vascular disease of extremity with claudication Stroke/cerebrovascular accident Tobacco abuse Wears glasses Home Medications ascorbic acid (vitamin C) 500 mg capsule 500 mg PO DINNER SUPPLEMENT 08/31/17 [History Last Taken 03/15/22] aspirin 81 mg tablet,delayed release 81 mg PO QDAY HEART 08/31/17 [History Last Taken 03/16/22] atorvastatin 40 mg tablet 40 mg PO QDAY CHOLESTEROL 08/31/17 [History Last Taken 03/15/22] benazepril 20 mg tablet 20 mg PO QDAY HYPERTENSION 08/31/17 [History Last Taken 03/15/22] cholecalciferol (vitamin D3) 25 mcg (1,000 unit) capsule 400 unit PO DAILY SUPPLEMENT 08/31/17 [History Last Taken 03/15/22] multivitamin 1 cap PO QAM SUPPLEMENT 08/31/17 [History Last Taken 03/15/22] zinc 50 mg tablet 50 mg PO DAILY SUPPLEMENT 12/27/21 [History Last Taken 03/15/22] clopidogrel 75 mg tablet (Plavix) 75 mg PO DAILY HEART 03/08/22 [History Last Taken 03/16/22] omega 2-ovd-lbg-fish oil 60 mg-90 mg-500 mg capsule (Fish Oil) 1 cap PO DAILY SUPPLEMENT 03/08/22 [History Last Taken 03/15/22] Allergy/AdvReac Type Severity Reaction Status Date / Time No Known Allergies Allergy Verified 03/16/22 06:10 Family History Father Heart disease Hypertension Sudden cardiac , Onset Age: 48 Mother Hypertension CAD (coronary artery disease) Aunt Cancer Grandmother Cancer Surgical History History of angioplasty of peripheral vessel (01/26/22) History of carotid angioplasty History of right-sided carotid endarterectomy (2012) Social History Smoking Status: Current every day smoker tobacco type: cigarettes Tobacco: How many years used: 51 alcohol intake: current alcohol intake frequency: a few times a week Alcohol type: beer ROS Constitutional Constitutional: Denies chills, fatigue, fever(s) or headache(s) Eyes Eyes: Denies blurry vision or change in vision ENT HEENT: Denies dizziness, dysphagia or headache(s) Cardiovascular Cardiovascular: Reports claudication; Denies chest pain, dizziness, dyspnea or edema Respiratory/Chest Respiratory/Chest: Denies chest tightness, cough or dyspnea Gastrointestinal Gastrointestinal: Denies abdominal pain or diarrhea Genitourinary Genitourinary: Denies difficulty urinating Musculoskeletal Musculoskeletal: Denies arthralgias, back pain or joint pain Integumentary Integumentary: Denies lesions, rash or skin ulcer Neurologic Neurologic: Denies abnormal gait, abnormal speech or confusion Psychiatric Psychiatric: Denies anxiety or depression Endocrine Endocrinology: Denies fatigue Hematologic/Lymphatic Hematologic/Lymphatic: Denies easy bleeding or easy bruising Physical Exam Const alert, oriented x3 and no apparent distress General Appearance: cooperative HEENT normocephalic, head/scalp atraumatic and moist oral mucous membranes Eyes PERRL, EOMs intact bilaterally and conjunctivae normal Neck supple General: trachea midline Chest inspection of chest normal Resp normal respiratory effort Auscultation: Negative for rales, rhonchi or wheezes Cardio regular rate and regular rhythm GI normal to inspection, nondistended, normoactive bowel sounds Extremity no clubbing, cyanosis or edema Skin no rashes or lesions noted Neuro CN's II-XII intact bilaterally, moves all extremities and no focal motor deficits Psych cooperative and affect normal Lab / Micro Data Result Diagrams: 03/09/22 05:53 03/09/22 05:53 Labs: Laboratory Results - last 24 hr 03/16/22 07:30: Activated Clotting Time 132 03/16/22 08:55: Activated Clotting Time 219 H 03/16/22 09:40: Activated Clotting Time 208 H 03/16/22 10:19: Activated Clotting Time 214 H 03/16/22 11:02: Activated Clotting Time 202 H Radiology Impression Pelvis X-Ray 03/16/22 10:36 IMPRESSION: Intraoperative imaging provided for left femoral endarterectomy and common iliac arterial stents. Electronically Signed: Mike Pierson MD at 12:09 EDT , Charges/Coding Visit Charges Inpatient E&M: 36675 Init Hosp L2 Behavior Interventions Behavior Intervention: 41279 Smoking Cessation 3-10 min
[2022-03-16] MEDS: Atorvastatin Calcium 40 MG Tablet PO (20:19)
[2022-03-17] VITALS (12 sets, daily range): BP systolic 119–148; BP diastolic 68–82; PULSE 74–102; RESP 17–23; TEMP 31.8–36.6; O2SAT 91–98
--- NOTE | 2022-03-17 06:35 | PN.CC_ITS ---
Assessment & Plan Assessment/Plan (1) Peripheral vascular disease of extremity with claudication: PLAN: Plan RECOMMENDATIONS: 1. Continue aspirin, Plavix and Lovenox as ordered. 2. PRN antihypertensives. 3. Dietary advancement per vascular surgery. 4. Encourage incentive spirometer use and mobilize patient as tolerated. 5. Remove arterial line. Discharge when appropriate per vascular surgery. IMPRESSIONS: 1. Atherosclerosis with claudication now POD #1 status post left common femoral endarterectomy with left external iliac angioplasty and stent Continue routine postoperative care per vascular surgery recommendations including aspirin, Plavix and Lovenox. Treat systolic pressures in excess of 140 mmHg with as needed antihypertensives as ordered. Dietary advancement as tolerated. Implement early mobilization. 2. Chronic tobacco dependency Tobacco cessation counseling was provided. Nicotine replacement therapy can be offered to the patient while admitted to the hospital. 3. Personal history of hypertension and hyperlipidemia Continue home medications as indicated. This note was generated with [employer] dictation software. It may contain incorrect words, spelling, and punctuation that were not noted in checking the note before signing. Subjective Subjective The patient was seen and examined at the bedside this morning. Events from the last 24 hours have been reviewed. The patient remains afebrile hemodynamically stable. No overnight issues were identified by the nursing staff. The patient is currently sitting in his bedside recliner without any complaints of pain. Objective Data Objective Data The patient's most recent lab work, culture data and imaging studies have all been personally reviewed. Vital Signs: Vital Signs Temp Pulse Resp BP Pulse Ox O2 Del Method O2 Flow Rate 97.8 F 74 18 148/80 H 93 Nasal Cannula 2 03/17/22 00:00 03/17/22 06:00 03/17/22 06:00 03/17/22 06:00 03/17/22 06:00 03/17/22 06:00 03/17/22 06:00 Oxygen Flow Rate (L/min) 2 Oxygen Delivery Method Nasal Cannula Weight: 154 lb 5.177 oz Body Mass Index (BMI) 25.0 Intake & Output: Intake and Output for Last 24 Hours 03/15/22 03/16/22 03/17/22 23:59 23:59 23:59 Intake Total 1550 / 1550 1300 / 1300 Output Total 1245 / 1445 1200 / 1200 Balance 305 / 105 100 / 100 Lab / Micro Data Attestation: I reviewed the patient's lab results. Result Diagrams: 03/09/22 05:53 03/09/22 05:53 Labs: Laboratory Results - last 24 hr 03/16/22 07:30: Activated Clotting Time 132 03/16/22 08:55: Activated Clotting Time 219 H 03/16/22 09:40: Activated Clotting Time 208 H 03/16/22 10:19: Activated Clotting Time 214 H 03/16/22 11:02: Activated Clotting Time 202 H Radiography Diagnostic Testing: Radiology Impression Pelvis X-Ray 03/16/22 10:36 IMPRESSION: Intraoperative imaging provided for left femoral endarterectomy and common iliac arterial stents. Electronically Signed: Mike Pierson MD at 12:09 EDT , Physical Exam Const alert, oriented x3 and no apparent distress Constitutional Narrative: Sitting in bedside recliner. General Appearance: cooperative HEENT normocephalic, head/scalp atraumatic and moist oral mucous membranes Eyes PERRL, EOMs intact bilaterally and conjunctivae normal Neck supple General: trachea midline Chest inspection of chest normal Resp normal respiratory effort Auscultation: Negative for rales, rhonchi or wheezes Cardio regular rate and regular rhythm GI normal to inspection, nondistended, normoactive bowel sounds Extremity no clubbing, cyanosis or edema Skin no rashes or lesions noted Neuro CN's II-XII intact bilaterally, moves all extremities and no focal motor deficits Psych cooperative and affect normal Charges/Coding Visit Charges Inpatient E&M: 65925 Subs Hosp L2
[2022-03-17] MEDS: Enoxaparin 40 MG/0.4 ML Syringe SC (08:36)
[2022-03-17] MEDS: Lisinopril 10 MG Tablet PO (08:36)
[2022-03-17] MEDS: Clopidogrel Bisulfate 75 MG Tablet PO (08:36)
[2022-03-17] MEDS: Aspirin 81 MG TAB.CHEW PO (08:36)
--- NOTE | 2022-03-17 09:15 | CASEMGMT ---
RN CM Face to Face with patient for initial transition planning/care coordination assessment. RN CM introduced self and role at [facility]. Patient lying in bed, alert and oriented. Patient willing to participate in assessment and is able to answer all questions appropriately. Care providers, pharmacy, and demographics verified. Patient wishes to discharge home, denies need for home health at this time. Patient states he has no further needs or concerns at this time. CM to follow for discharge planning needs that may arise. PCP: Roly Specialists:[facility] vascular; New, surgeon Preferred Pharmacy: [facility] retail at discharge Insurance: [facility] Prescription Benefit: yes Living Will/HPOA: yes, son Cj Daily LNOK: son, daughter Living Arrangements: Patient lives alone in a single story home with 3 steps and railing to enter the home. Patient states he is independent at home. Transportation: self, daughter DME/HHC: Patient denies DME or previous HHC. Disposition Plan: Patient to discharge home with family support and follow-up plans in place. Ami LOZANO, RN, CM
--- NOTE | 2022-03-17 10:53 | NURSING ---
Dr Patel in to see patient at this time. This RN was told to remove all heart monitors and pulse ox and IV's at this time. Dr Patel will be putting in his discharge orders. Dr Patel also wants patient to walk the leiva with his daughter to be sure he will do okay going home.
--- NOTE | 2022-03-17 11:26 | PCM.PN.SRG ---
Subjective Subjective Doing well today, pain controlled, no CP/SOB/N/V. Ally PO, ambulating in room. Objective Data Objective Data Vital Signs: Vital Signs Temp Pulse Resp BP Pulse Ox O2 Del Method O2 Flow Rate 89.2 F L 102 H 19 H 123/68 H 95 Room Air 2 03/17/22 08:00 03/17/22 10:00 03/17/22 10:00 03/17/22 10:00 03/17/22 10:00 03/17/22 10:00 03/17/22 07:00 Oxygen Flow Rate (L/min) 2 Oxygen Delivery Method Room Air Weight: 154 lb 5.177 oz Body Mass Index (BMI) 25.0 Intake & Output: Intake and Output for Last 24 Hours 03/15/22 03/16/22 03/17/22 23:59 23:59 23:59 Intake Total 1550 / 1550 2526.75 / 2526.75 Output Total 1245 / 1445 1200 / 1200 Balance 305 / 105 1326.75 / 1326.75 Lab / Micro Data Result Diagrams: 03/09/22 05:53 03/09/22 05:53 Labs: Laboratory Results - last 24 hr 03/16/22 07:30: Activated Clotting Time 132 03/16/22 08:55: Activated Clotting Time 219 H 03/16/22 09:40: Activated Clotting Time 208 H 03/16/22 10:19: Activated Clotting Time 214 H 03/16/22 11:02: Activated Clotting Time 202 H Radiography Diagnostic Testing: Radiology Impression Pelvis X-Ray 03/16/22 10:36 IMPRESSION: Intraoperative imaging provided for left femoral endarterectomy and common iliac arterial stents. Electronically Signed: Mike Pierson MD at 12:09 EDT , Physical Exam Const alert, oriented x3, no apparent distress and healthy appearing General Appearance: cooperative; Negative for combative or lethargic Orientation / Consciousness: awake Exam Limitations: no limitations HEENT Head and Scalp: normocephalic and atraumatic Eyes EOMs intact bilaterally General Eye: normal appearance of both eyes Neck General: trachea midline Resp normal respiratory effort and no use of accessory muscles Effort and Inspection: Negative for stridor or audible wheezes Cardio regular rate and regular rhythm Peripheral Pulses: brachial pulses present, radial pulses present, popliteal pulses present left and posterior tibial pulses present left Extremity full ROM and no clubbing, cyanosis or edema Skin no rashes or lesions noted and no wounds Neuro oriented x3, CN's II-XII intact bilaterally, no focal motor deficits and no sensory deficits noted Psych thought process normal, cooperative, affect normal, speech normal and activity/motor behavior normal Assessment & Plan Assessment/Plan (1) Peripheral vascular disease of extremity with claudication: PLAN: -palpable left PT -Provena intact; plan to keep for 7 days, instructions on removal given -pain controlled; DC with PO regimen -ASA, Plavix, Statin -DC this afternoon with able to ambulate in leiva
--- NOTE | 2022-03-17 11:46 | PCM.DC.SUM ---
Providers Date of Admission: 03/16/22 Primary Care Physician: Dr. Shira Dunham MD Reason For Visit: femoral endarterectomy Diagnosis Discharge Diagnosis (1) Peripheral vascular disease of extremity with claudication: Status: Acute Code(s): I73.9 - Peripheral vascular disease, unspecified Plan: -palpable left PT -Provena intact; plan to keep for 7 days, instructions on removal given -pain controlled; DC with PO regimen -ASA, Plavix, Statin -DC this afternoon with able to ambulate in leiva Medications at Discharge Home Medications ascorbic acid (vitamin C) 500 mg capsule 500 mg PO DINNER SUPPLEMENT 08/31/17 aspirin 81 mg tablet,delayed release 81 mg PO QDAY HEART 08/31/17 atorvastatin 40 mg tablet 40 mg PO QDAY CHOLESTEROL 08/31/17 benazepril 20 mg tablet 20 mg PO QDAY HYPERTENSION 08/31/17 cholecalciferol (vitamin D3) 25 mcg (1,000 unit) capsule 400 unit PO DAILY SUPPLEMENT 08/31/17 multivitamin 1 cap PO QAM SUPPLEMENT 08/31/17 zinc 50 mg tablet 50 mg PO DAILY SUPPLEMENT 12/27/21 clopidogrel 75 mg tablet (Plavix) 75 mg PO DAILY HEART 03/08/22 omega 6-swu-qfp-fish oil 60 mg-90 mg-500 mg capsule (Fish Oil) 1 cap PO DAILY SUPPLEMENT 03/08/22 oxycodone 5 mg tablet 5 mg PO Q4H PRN PRN Pain Score 4-5 3 days #12 tabs 03/17/22 Hospital Course Operations - (left femoral endarterectomy/iliac stent/sartorius flap ) Summary of Care Provided Hospital Course: Patient underwent elective left femoral endarterectomy, left external iliac stent and left sartorius flap 03/16/22 for lifestyle limiting claudication. He tolerated the procedure well and was admitted to the ICU for hemodynamic monitoring and serial vascular exams. Overnight he was hemodynamically stable with no signs of procedural complications. On POD #1 he was tolerating diet, began progressive ambulation, had arterial line/davis removed. After successful ambulation, voiding without difficulty, and satisfactory pain control with PO medication he was prepared for discharge to home. Physical Exam Const alert, oriented x3, no apparent distress and healthy appearing General Appearance: cooperative; Negative for combative or lethargic Orientation / Consciousness: awake Exam Limitations: no limitations HEENT Head and Scalp: normocephalic and atraumatic Eyes EOMs intact bilaterally General Eye: normal appearance of both eyes Neck full ROM and no lymphadenopathy General: trachea midline; Negative for lymphadenopathy or tenderness Resp normal respiratory effort and no use of accessory muscles Effort and Inspection: Negative for labored, stridor or audible wheezes Cardio regular rate and regular rhythm Peripheral Pulses: brachial pulses present, radial pulses present, popliteal pulses present and posterior tibial pulses present Extremity full ROM, normal capillary refill and no clubbing, cyanosis or edema Skin no rashes or lesions noted and no wounds Neuro oriented x3, CN's II-XII intact bilaterally, no focal motor deficits and no sensory deficits noted Psych thought process normal, cooperative, affect normal, speech normal and activity/motor behavior normal Weight / BMI Weight Weight: 154 lb 5.177 oz Body Mass Index (BMI) 25.0 ABG / Lab / Microbiology Data Result Diagrams: 03/09/22 05:53 03/09/22 05:53 Laboratory: Laboratory Results - last 24 hr 03/16/22 07:30: Activated Clotting Time 132 03/16/22 08:55: Activated Clotting Time 219 H 03/16/22 09:40: Activated Clotting Time 208 H 03/16/22 10:19: Activated Clotting Time 214 H 03/16/22 11:02: Activated Clotting Time 202 H Radiography Diagnostic Testing: Radiology Impression Pelvis X-Ray 03/16/22 10:36 IMPRESSION: Intraoperative imaging provided for left femoral endarterectomy and common iliac arterial stents. Electronically Signed: Mike Pierson MD at 12:09 EDT , Meaningful Use Info Meaningful Use Diagnoses (Choose all that apply): None applicable Discharge Plan Admission Admit Date/Time: 03/16/22 05:16 Primary Reason for Your Visit: Left common femoral endarterectomy/external iliac stent/sartorius flap Attending Provider: Nathan Patel Primary Care Provider: Shira Dunham Instructions Patient Instructions: Femoral Endarterectomy Dc Additional Instructions / Restrictions: May shower 03/18 Do not submerge incision for 3 weeks Do not lift > 20 lbs for [address] not taking pain medication and able to comfortably/safely operate vehicle Provena dressing to be removed 03/23; after removal keep area dry and monitor for signs of infection May use ibuprofen and acetaminophen as directed as pain subsides Discharge Orders/Prescriptions Prescriptions: New oxycodone 5 mg Tablet 5 mg PO Q4H PRN PRN (Reason: Pain Score 4-5) 3 Days Qty: 12 0RF Continued atorvastatin 40 mg tablet 40 mg PO QDAY benazepril 20 mg tablet 20 mg PO QDAY aspirin 81 mg tablet,delayed release (DR/EC) 81 mg PO QDAY multivitamin capsule capsule 1 cap PO QAM cholecalciferol (vitamin D3) 1,000 unit capsule 400 unit PO DAILY ascorbic acid (vitamin C) 500 mg capsule 500 mg PO DINNER zinc 50 mg tablet 50 mg PO DAILY omega 6-gcj-nvv-fish oil [Fish Oil] 60-90-500 mg Capsule 1 cap PO DAILY clopidogrel [Plavix] 75 mg tablet 75 mg PO DAILY Other Ambulatory Orders: 12 Lead EKG (Routine) Timeframe: 20220309 Location: None Selected Ordered By: Dr. Nathan Patel Referrals / Follow Up: Shira Dunham MD [Primary Care Provider] - Disposition Disposition (needs filled in before D/C Order can be placed): Home, Self Care
== END 2022-03-17 12:29 | disposition home or self-care (01) | DRG 253 ==
LOC: ACINP 05:18 → ICU 13:31
PROVIDERS: Admitting Provider Surgery Trauma Surgery; PCP Family Medicine; Referring Provider Surgery Trauma Surgery; Visit Provider Surgery Trauma Surgery
PROC: 04CL0ZZ Extirpation of Matter from Left Femoral Artery, Open Approach (ICD-10-PCS; principal; 2022-03-16 07:10)
DX: I70.212 Atherosclerosis of native arteries of extremities with intermittent claudication, left leg (principal); I70.92 Chronic total occlusion of artery of the extremities; E78.00 Pure hypercholesterolemia, unspecified; F17.210 Nicotine dependence, cigarettes, uncomplicated; K21.9 Gastro-esophageal reflux disease without esophagitis; I65.23 Occlusion and stenosis of bilateral carotid arteries; Z86.16 Personal history of COVID-19; Z86.73 Personal history of transient ischemic attack (TIA), and cerebral infarction without residual deficits; Z79.82 Long term (current) use of aspirin; Z79.899 Other long term (current) drug therapy; Z79.02 Long term (current) use of antithrombotics/antiplatelets
CPT/HCPCS: 36415; 72170; 76000; 80048; 85025; 85347; 86850; 86900; 86901; 88300; 93005; 99251; C1894; J7040; J7120; C1725; C1769; G0463; J2405

== ENCOUNTER 2022-05-16 05:19 | Inpatient (IN) | payer MEDICARE, SELFPAY ==
--- NOTE | 2022-05-10 07:35 | EKG12_ITS ---
Test Reason : PRE OP Blood Pressure : / mmHG Vent. Rate : 085 BPM Atrial Rate : 085 BPM P-R Int : 182 ms QRS Dur : 084 ms QT Int : 362 ms P-R-T Axes : 093 -44 034 degrees QTc Int : 430 ms Normal sinus rhythm Left axis deviation Septal infarct , age undetermined Abnormal ECG Confirmed by LEAH DE JESUS, JADEN ([id number]), make up editor NIYA FRIAS ([id number]) on 05/11/2022 9:28:34 AM Referred By: KARINA Confirmed By:JADEN LYNN MD
--- NOTE | 2022-05-10 07:40 | RAD_ITS ---
EXAM: XR CHEST, 2 VIEWS CLINICAL INDICATION: PRE-OP TECHNIQUE: Frontal and lateral views of the chest. This report was created using [employer] report generation technology. COMPARISON: None. FINDINGS: LUNGS AND PLEURAL SPACES: Unremarkable. No consolidation or edema. No pneumothorax. No effusion. HEART: Unremarkable. Cardiac silhouette not enlarged. MEDIASTINUM: Central airways and mediastinal contour are unremarkable. BONES/JOINTS: Unremarkable. SOFT TISSUES: Unremarkable. RAD/Chest PA and Lateral IMPRESSION: No radiographic evidence of acute cardiopulmonary disease. Electronically Signed: Roger Webb MD at 9:49 EDT ,
[2022-05-10 08:14] LABS: Hematocrit 46.2 % (40-54); Mean Corp Hgb Conc 32.5 g/dL (32-36); Mean Corpuscular Hgb 31.1 pg (27.0-32.0); Mean Corpuscular Volume 95.7 fL (80-94); Mean Platelet Vol. 9.1 fl (6.2-12.0); Platelet Count 356 K/mm3 (150-450); RBC Distribution Width CV 14.1 % (11.6-14.6); RBC Distribution Width SD 49.5 fl (35.1-43.9); Red Blood Count 4.83 M/mm3 (4.6-6.2); White Blood Count 9.8 K/mm3 (4.4-11.0)
[2022-05-10 08:57] LABS: Anion Gap 7 (5-15); BUN 12 mg/dL (7-18); BUN/Creat Ratio 11.7 RATIO (10-20); Calcium,Total 9.4 mg/dL (8.5-10.1); Chloride 106 mmol/L (98-107); Creatinine, Serum 1.03 mg/dL (0.70-1.30); EST Glomerular Filtration Rate 76 mL/min (>60); Est Glom Filt Rate - Afr Amer 92 mL/min (>60); Glucose 106 mg/dL (74-106); Potassium 4.2 mmol/L (3.5-5.1); Sodium Level 140 mmol/L (136-145)
[2022-05-16] VITALS (21 sets, daily range): BP systolic 76–178; BP diastolic 34–175; PULSE 76–102; RESP 14–27; TEMP 36.2–36.9; O2SAT 91–98; BMI 25.3; BMI 25.9
--- NOTE | 2022-05-16 | PLAQ_PTH ---
PATIENT: DARREL MORAN LOC: [facility] U#:[id number] AGE/SX: 72/M ROOM: ICU02 RE05/16/[address]: Dr. Nathan Patel MD : 1950 BED: 1 DIS: 05/17/2022 SPEC #: [id number] RECD: 05/16/22 14:07 STATUS: CONG REQ #: [id number] HUMZA: 05/16/22 00:[address]: Nathan Patel DEPT: SURGICAL PATHOLOGY RECD BY: Aries Corona ENTERED: 05/17/22 10:16 SP TYPE: PLAQUE OTHR DR: Silvia Trivedi DO Tissues: PLAQUE Procedures: Decalcification bone/plaque Surgery Specimen Level III HEADER OPERATION: ERAS, femoral endarterectomy, iliac stent, Sartorius flap PRE-OP DIAGNOSIS: Peripheral vascular disease of extremity with claudication TISSUE SUBMITTED: Plaque right femoral artery MICROSCOPIC DIAGNOSIS Right femoral artery plaque, endarterectomy: Calcified atheromatous plaque consistent with severe stenosis. AM:yasmin 05/20/2022 GROSS DESCRIPTION Received in fixative is one container labeled with the patient's name and designated right femoral artery plaque. The specimen consists of an elongated fragment of calcified atheromatous plaque measuring 6 cm in length and 1 cm in diameter. The specimen cuts with a gritty sensation. The specimen is totally submitted in one cassette after decalcification. / AM:yasmin 05/17/2022 TC:5 CPT: 61164, 10378
[2022-05-16] MEDS: Lactated Ringers 1,000 ML 15 ML IV ×2 (06:33→12:45)
--- NOTE | 2022-05-16 07:23 | HP.PCM_ITS ---
History and Physical HPI Narrative DARREL MORAN, is a 71 M who presented for bilateral lifestyle limiting claudication refractory to conservative tx. Had left side addressed with femoral endart, iliac stent, anand a few months ago and is well recovered. Left leg now without limitation, no wound healing concerns. Right side continues to be limiting; recently golfed on vacation and had to stop and rest leg every few holes. No new rest pain or foot wounds. PFSH Medical History? Alcohol use Bilateral carotid artery stenosis COVID-19 (08/11/21) Easy bruising Essential hypertension GERD (gastroesophageal reflux disease) High cholesterol Hyperlipidemia Peripheral vascular disease of extremity with claudication Stroke/cerebrovascular accident Tobacco abuse Wears glasses Home Medications ascorbic acid (vitamin C) 500 mg capsule 500 mg PO DINNER SUPPLEMENT 08/31/17 [History Last Taken 03/15/22] aspirin 81 mg tablet,delayed release 81 mg PO QDAY HEART 08/31/17 [History Last Taken 03/16/22] atorvastatin 40 mg tablet 40 mg PO QDAY CHOLESTEROL 08/31/17 [History Last Taken 03/15/22] benazepril 20 mg tablet 20 mg PO QDAY HYPERTENSION 08/31/17 [History Last Taken 03/15/22] cholecalciferol (vitamin D3) 25 mcg (1,000 unit) capsule 400 unit PO DAILY SUPPLEMENT 08/31/17 [History Last Taken 03/15/22] multivitamin 1 cap PO QAM SUPPLEMENT 08/31/17 [History Last Taken 03/15/22] zinc 50 mg tablet 50 mg PO DAILY SUPPLEMENT 12/27/21 [History Last Taken 03/15/22] clopidogrel 75 mg tablet (Plavix) 75 mg PO DAILY HEART 03/08/22 [History Last Taken 03/16/22] omega 2-cmi-qba-fish oil 60 mg-90 mg-500 mg capsule (Fish Oil) 1 cap PO DAILY SUPPLEMENT 03/08/22 [History Last Taken 03/15/22] Allergy/AdvReac Type Severity Reaction Status Date / Time No Known Allergies AllergyB ? ? Verified 03/16/22 06:10 Family History? Father Heart disease Hypertension Sudden cardiac ,? Onset Age: 48Mother Hypertension CAD (coronary artery disease)Aunt CancerGrandmother Cancer Surgical History? History of angioplasty of peripheral vessel (01/26/22) History of carotid angioplasty History of right-sided carotid endarterectomy (2012) Social History? Smoking Status:? Current every day smoker tobacco type: cigarettes Tobacco: How many years used:? 51 alcohol intake:? current alcohol intake frequency: a few times a week Alcohol type: beer ROS Constitutional Constitutional: Denies change in weight, chills or fever(s) Cardiovascular Cardiovascular: Reports claudication; Denies chest pain or edema Respiratory/Chest Respiratory/Chest: Denies cough, shortness of breath at rest or shortness of breath with exertion Genitourinary Genitourinary: Denies hematuria Integumentary Integumentary: Denies wounds Neurologic Neurologic: Denies focal weakness or weakness Vital Signs Vital Signs Vital Signs: ? 03/16/22 06:11 03/16/22 06:11 Temperature ? 97.9 F Temperature Source ? Temporal Pulse Rate ? 83 Respiratory Rate ? 18 Respiratory Pattern Normal ? Blood Pressure ? 127/74 H Blood Pressure Mean ? 91 Blood Pressure Source ? Monitor Blood Pressure Position ? Semi-Fowlers Blood Pressure Location ? Left Arm Pulse Ox ? 96 Oxygen Delivery Method ? Room Air Weight Weight: ? 149 lb 14.629 oz? Body Mass Index (BMI) ? 24.2? Physical Exam Const alert, oriented x3, no apparent distress and healthy appearing General Appearance: cooperative; Negative for combative or lethargic Orientation / Consciousness: awake Exam Limitations: no limitations HEENT Head and Scalp: normocephalic and atraumatic Eyes EOMs intact bilaterally General Eye: normal appearance of both eyes Neck full ROM and no lymphadenopathy General: trachea midline Resp normal respiratory effort and no use of accessory muscles Effort and Inspection: Negative for labored, stridor or audible wheezes Cardio regular rate and regular rhythm Peripheral Pulses: brachial pulses present and radial pulses present Extremity full ROM and no clubbing, cyanosis or edema; Negative for normal capillary refill Skin no rashes or lesions noted and no wounds Neuro oriented x3, CN's II-XII intact bilaterally, no focal motor deficits and no sensory deficits noted Psych thought process normal, cooperative, affect normal, speech normal and activity/motor behavior normal Results Lab / Micro Data Result Diagrams: 03/09/22 05:53? 03/09/22 05:53? Assessment & Plan Assessment/Plan (1) Peripheral vascular disease of extremity with claudication: PLAN: -right femoral endarterectomy, right external iliac stent, possible sartorius flap -risks, benefits, alternatives discussed, patient agrees to proceed?
[2022-05-16] MEDS: Cefazolin 2 GM in 0.9% Normal Saline 100 ML IV (07:50)
--- NOTE | 2022-05-16 11:10 | RAD_ITS ---
PROCEDURE: ANGIOGRAM - REASON FOR EXAM: Male, 72 years old. ERAS, FEMORAL ENDARTERECTOMY, ILIAC STENT, SARTORIUS FLUOROSCOPY TIME (if supplied): (4 minutes and 37 seconds) minutes/seconds. 6 images were submitted. STERILE BARRIER TECHNIQUE: The following sterile barrier precautions were used during the procedure: hand hygiene; use of 2% chlorhexidine aseptic; use of a cap, mask, sterile gown, sterile gloves, sterile full body drape, and a large sterile sheet. TECHNIQUE: (All elements of maximal sterile barrier technique followed, including US elements as applicable) Intraoperative angiography for angioplasty and stent placement of the right external iliac artery/common femoral artery. RAD/Fluoroscopy 1 Hr or Less IMPRESSION: Intraoperative angiography for angioplasty and stent placement of the right external iliac artery/common femoral artery stenosis. Electronically Signed: Mike Pierson MD at 13:04 EDT ,
[2022-05-16] MEDS: Thrombin 5,000 IU Kit (PSA) 5,000 IU Vial 5000 IU TOPICAL (12:30)
[2022-05-16] MEDS: Heparin 10,000 UNITS/10 ML Vial 10000 UNITS (12:30)
[2022-05-16] MEDS: Heparin Injection (Vial) 5,000 UNIT/ML VIAL 5000 UNIT (12:30)
--- NOTE | 2022-05-16 13:43 | EKG12_ITS ---
Test Reason : POST OP ENDART Blood Pressure : / mmHG Vent. Rate : 087 BPM Atrial Rate : 087 BPM P-R Int : 172 ms QRS Dur : 094 ms QT Int : 370 ms P-R-T Axes : 060 -36 004 degrees QTc Int : 445 ms Normal sinus rhythm Left axis deviation Low voltage QRS Septal infarct (cited on or before 10-MAY-2022) Abnormal ECG When compared with ECG of 10-MAY-2022 07:35, Nonspecific T wave abnormality, worse in Inferior leads Confirmed by AMEENA DE JESUS, ALANNA ([id number]), sports editor NIYA FRIAS ([id number]) on 05/17/2022 1:51:47 PM Referred By: Nathan Patel Confirmed By:ALANNA LINDQUIST MD
--- NOTE | 2022-05-16 13:43 | SUR.PHASEI ---
VERY RESTLESS ON PACU ARRIVAL WITH FREQUENT MOIST, HARSH COUGH, OROPHARYNGEAL SUCTIONED FOR THICK WHITE SECRETIONS, DIFFICULTY FOLLOWING COMMANDS. REPORTS SENSATION PRESENT IN RIGHT LOWER LEG, ABLE TO RIGHT DOPPLER PEDAL PULSE, LEFT POSTERIOR TIB PULSE. WOUND VAC IN PLACE TO RIGHT GROIN. DEMANDING.
--- NOTE | 2022-05-16 15:52 | OP.PCM_ITS ---
Report of Operation Date of Procedure: 05/16/22 Pre-Operative Diagnosis: Atherosclerosis with claudication of the right lower e xtremity Post-Operative Diagnosis: Same Surgery/Procedure Performed:: Right common femoral endarterectomy Right external iliac artery angioplasty and stent Right sartorius flap Surgeon: Nathan Patel Type of Anesthesia: General Specimen's removed: Right femoral plaque Estimated Blood Loss (mL): 500 Description of Procedure: HPI: Patient is a 72-year-old male with lifestyle limiting lower extremity claudication refractory to conservative therapy. Previous underwent left femoral endarterectomy and iliac stenting for which she is recovered and he presents now to address the right lower extremity. Description of procedure: Upon obtaining form consent and verification of correct patient procedure site patient was taken the operating room where he was placed under anesthesia. He was then positioned prepped and draped in usual sterile fashion a timeout was performed. Oblique incision was made over the common femoral artery and Bovie electrocautery used to dissect down through subcutaneous tissue. Self-retaining tractors were then put in position and further dissection carried down to the femoral sheath. Then carried dissection cephalad to the inguinal ligament which is freed along with inferior border allowing retraction. We then incised the femoral sheath vertically exposing the common femoral artery. Sharp resection was then used dissect free the common femoral artery approximately two-point which was soft and capable above the inguinal ligament. Right angle was then used to place a vessel loop at this location as well as around the medial lateral branches. Next dissection was carried distally down onto the distal common femoral artery and its bifurcation with a right angle used to place a vessel loop around the SFA origin. The profundofemoral artery main trunk was calcified and diseased so we carried our dissection down onto the secondary branches with plans to perform endarterectomy onto the profunda. Given the extended length of dissection needed onto the profunda as well as onto the distal external leg artery a modifier 22 was applied given that there was 1 hour of increased operative time. Once we got to satisfactory profunda branches a right angle was used to place a vessel loop around each branch individually. Patient was then heparinized also for 3 minutes followed by an ACT with heparin dosing based on results. Branch was then occluded with Vesseloops in longitudinal arteriotomy was created with 11 blade and a stent was brought scissors from the proximal common femoral artery down onto the main profunda trunk. We then performed our endarterectomy using a freer elevator with the eversion endarterectomy of the origin of the SFA and satisfactory endpoint onto the secondary branch of the profunda. We then brought a bovine pericardial patch on the field and prepped for manufactures instructions. This was then secured in position using a 6-0 Prolene in a running fashion. Prior to completing the suture line the vessels were backbled and the lumen flushed with heparinized saline. After completing the suture line plans removed from the SFA and the external iliac artery allowing antegrade flow to flush into the occluded SFA origin. After clamps were removed repair stitches were placed in the distal vessels interrogated with Doppler appropriate low resistance signal. This point we punctured the patch in retrograde fashion using micropuncture needle and wire exchanged for micropuncture sheath. Through the micropuncture sheath and injection iliofemoral angiogram was performed which confirmed satisfactory location with no extravasation or dissection. To the micropuncture sheath [employer] wire was advanced and the micropuncture sheath exchanged out for a 7 Vietnamese sheath. Through the 7 Vietnamese sheath a marker pigtail catheter advanced over the Bentson wire position of the external iliac artery and subtraction iliac angiogram performed to ashutosh the extent of the iliac plaque. A 7 mm x 80 Cook Zilver PTX paclitaxel coated stent was then brought on the field prepped for manufactures instructions. For the veins in the position and the external leg artery and deployed followed by postdilatation with a 6 mm angioplasty balloon. Completion angiogram revealed satisfactory resolution of the stenosis with no extravasation or dissection and brisk contrast transit across the stented area. The wire and sheath were then withdrawn and the common femoral artery occluded with atraumatic clamps. The puncture site was then repaired with a 5-0 Prolene after which clamps removed satisfactory and the stasis noted. There is now a strong palpable pulse in the common femoral artery as well as on the profunda branches and again with satisfactory Doppler signal in the profunda branches. At this point heparin was reversed with protamine and Surgicel topical hemostatic applied to the femoral vessels. We then turned attention to mobilization of the sartorius muscle in the lateral aspect of the surgical field. We then incised the fascia overlying the sartorius and extended the cephalad towards the anterior superior iliac spine. The sartorius was then mobilized along its medial lateral aspects and circumferentially mobilized at its insertion. Bovie cautery then used to detach insertion from the iliac spine and the muscle was transposed over the femoral vessels with no tension. The femoral vessels were again inspected for hemostasis and additional Surgicel and thrombin applied after which satisfactory stasis was noted. A sartorius muscle was then anchored into position using 2-0 Vicryl interrupted sutures followed by 3-0 Vicryl and 4-0 Monocryl for the skin. Dermabond followed by Prevena was then applied and the patient was awakened anesthesia taken recovery room anticipated admission to the ICU for hemodynamic and vascular monitoring. Grafts/Implants Used: Bovine Pericardial patch, Cook zilver PTX 7 x 80 Complications None
[2022-05-16 15:53] LABS: ACT Activated Clotting Time 121 sec (74-137)
[2022-05-16 15:54] LABS: ACT Activated Clotting Time 231 sec (74-137)
[2022-05-16] MEDS: 0.45% Normal Saline 1,000 ML 100 ML IV (15:54)
[2022-05-16 15:56] LABS: ACT Activated Clotting Time 208 sec (74-137)
[2022-05-16 15:56] LABS: ACT Activated Clotting Time 190 sec (74-137)
[2022-05-16 15:58] LABS: ACT Activated Clotting Time 190 sec (74-137)
[2022-05-16 16:00] LABS: ACT Activated Clotting Time 208 sec (74-137)
[2022-05-16] MEDS: Ascorbic Acid 500 MG Tablet PO (17:49)
[2022-05-16] MEDS: Atorvastatin Calcium 40 MG Tablet PO (21:58)
[2022-05-17] VITALS (12 sets, daily range): BP systolic 96–146; BP diastolic 60–111; PULSE 69–105; RESP 15–26; TEMP 36.1–36.3; O2SAT 94–98
[2022-05-17] MEDS: 0.45% Normal Saline 1,000 ML 100 ML IV (02:02)
[2022-05-17 04:13] LABS: Absolute Lymphocyte Count 1.97 X10^3/uL (0.83-4.51); Absolute Neutrophil Count 5.8 X10^3/uL (2.0-7.7); Basophil# 0.03 X10^3/uL; Basophil% 0.3 % (0-1); Eosinophil# 0.12 X10^3/uL; Eosinophils% 1.4 % (0-5); Hematocrit 36.2 % (40-54); Hemoglobin 11.4 g/dL (13.0-16.5); Lymphocyte # 1.97 X10^3/ul (0.83-4.51); Lymphocyte % 22.6 % (19-41); Mean Corp Hgb Conc 31.5 g/dL (32-36); Mean Corpuscular Hgb 31.1 pg (27.0-32.0); Mean Corpuscular Volume 98.6 fL (80-94); Mean Platelet Vol. 9.1 fl (6.2-12.0); Monocyte# 0.72 X10^3/uL; Monocyte% 8.3 % (0-10); NRBC Flagged by Analyzer 0 % (0-5); Neutrophil # 5.82 X10^3/uL (2.7-7.7); Neutrophil % 66.9 % (47-70); Platelet Count 245 K/mm3 (150-450); RBC Distribution Width CV 13.8 % (11.6-14.6); RBC Distribution Width SD 50.4 fl (35.1-43.9); Red Blood Count 3.67 M/mm3 (4.6-6.2); White Blood Count 8.7 K/mm3 (4.4-11.0)
[2022-05-17 04:27] LABS: Anion Gap 7 (5-15); BUN 13 mg/dL (7-18); BUN/Creat Ratio 19.4 RATIO (10-20); Calcium,Total 6.6 mg/dL (8.5-10.1); Chloride 102 mmol/L (98-107); Creatinine, Serum 0.67 mg/dL (0.70-1.30); EST Glomerular Filtration Rate 125 mL/min (>60); Est Glom Filt Rate - Afr Amer 151 mL/min (>60); Estimated Creatinine Clearance 59.79 ml/min; Glucose 86 mg/dL (74-106); Magnesium 1.6 mg/dL (1.6-2.6); Phosphorus 2.3 mg/dL (2.5-4.9); Potassium 3.7 mmol/L (3.5-5.1); Sodium Level 131 mmol/L (136-145)
[2022-05-17] MEDS: Aspirin E.C. 81 MG Tablet PO (08:26)
[2022-05-17] MEDS: Enoxaparin 40 MG/0.4 ML Syringe SC (08:26)
[2022-05-17] MEDS: Multivitamins,Therapeutic Tablet 1 TABLET PO (08:26)
[2022-05-17] MEDS: Lisinopril 20 MG Tablet PO (08:27)
[2022-05-17] MEDS: Cholecalciferol (VIT D3) 25 MCG TABLET (1,000 UNITS) PO (08:27)
[2022-05-17] MEDS: Clopidogrel Bisulfate 75 MG Tablet PO (08:27)
--- NOTE | 2022-05-17 09:32 | PCM.PN.SRG ---
Subjective Subjective Doing well this AM. Pain controlled, ambulated to chair, blanca PO, voiding. Objective Data Objective Data Vital Signs: Vital Signs Temp Pulse Resp BP Pulse Ox O2 Del Method O2 Flow Rate 97.2 F L 81 18 109/102 H 97 Room Air 2 05/17/22 04:00 05/17/22 08:00 05/17/22 08:00 05/17/22 08:00 05/17/22 08:00 05/17/22 08:00 05/17/22 03:00 Oxygen Flow Rate (L/min) 2 Oxygen Delivery Method Room Air Weight: 156 lb 1 oz Body Mass Index (BMI) 25.9 Intake & Output: Intake and Output for Last 24 Hours 05/15/22 05/16/22 05/17/22 23:59 23:59 23:59 Intake Total 2154 / 2154 1676.67 / 1676.67 Output Total 1775 / 1775 500 / 500 Balance 379 / 379 1176.67 / 1176.67 Lab / Micro Data Result Diagrams: 05/17/22 04:03 05/17/22 04:03 Labs: Laboratory Results - last 24 hr 05/16/22 07:59: Activated Clotting Time 121 05/16/22 09:34: Activated Clotting Time 231 H 05/16/22 10:12: Activated Clotting Time 208 H 05/16/22 10:47: Activated Clotting Time 190 H 05/16/22 11:30: Activated Clotting Time 190 H 05/16/22 12:06: Activated Clotting Time 208 H 05/17/22 04:03: WBC 8.7, RBC 3.67 L, Hgb 11.4 L, Hct 36.2 L, MCV 98.6 H, MCH 31.1, MCHC 31.5 L, RDW Std Deviation 50.4 H, RDW Coeff of Semaj 13.8, Plt Count 245, MPV 9.1, Immature Gran % (Auto) 0.500, Neut % (Auto) 66.9, Lymph % (Auto) 22.6, [place] % (Auto) 8.3, Eos % (Auto) 1.4, Baso % (Auto) 0.3, Absolute Neuts (auto) 5.8, Absolute Lymphs (auto) 1.97, Nucleated RBC % 0 05/17/22 04:03: Sodium 131 L, Potassium 3.7, Chloride 102, Carbon Dioxide 22.0, Anion Gap 7, BUN 13, Creatinine 0.67 L, Estim Creat Clear Calc 59.79, Est GFR (MDRD) Af Amer 151, Est GFR (MDRD) Non-Af 125, BUN/Creatinine Ratio 19.4, Glucose 86, Calcium 6.6 L, Phosphorus 2.3 L, Magnesium 1.6 Radiography Diagnostic Testing: Radiology Impression Fluoroscopy 05/16/22 11:10 IMPRESSION: Intraoperative angiography for angioplasty and stent placement of the right external iliac artery/common femoral artery stenosis. Electronically Signed: Mike Pierson MD at 13:04 EDT , Physical Exam Const alert, oriented x3, no apparent distress and healthy appearing General Appearance: cooperative; Negative for combative or lethargic Orientation / Consciousness: awake Exam Limitations: no limitations HEENT Head and Scalp: normocephalic and atraumatic Eyes EOMs intact bilaterally General Eye: normal appearance of both eyes Neck full ROM General: trachea midline Resp normal respiratory effort and no use of accessory muscles Effort and Inspection: Negative for labored, stridor or audible wheezes Cardio regular rate and regular rhythm Peripheral Pulses: radial pulses present Back/Spine Cervical Spine: cervical ROM normal Extremity full ROM, normal capillary refill and no clubbing, cyanosis or edema Skin no rashes or lesions noted and no wounds Neuro oriented x3, CN's II-XII intact bilaterally, no focal motor deficits and no sensory deficits noted Psych thought process normal, cooperative, affect normal, speech normal and activity/motor behavior normal Assessment & Plan Assessment/Plan (1) PAOD (peripheral arterial occlusive disease): PLAN: -POD # 1 right femoral endart, iliac stent, sartoriuous -dc art line, progressive ambulation -dc home
--- NOTE | 2022-05-17 09:34 | DCINST_ITS ---
Discharge Instructions Diet Discharge Diet: No restrictions Activity May shower in (days): 1 Weight Bearing Status: Weight bearing as tolerated Lifting Restrictions: no lifting > 20 lbs for 3 weeks Dressing / Incision Call your doctor if your incision/area has: Sudden Increased Bleeding, Increased Pain/ Swelling, Increased Redness and Foul Smelling Discharge Call your doctor if you observe: Fever of 101 or Higher Remove Dressing in: 6 days Follow Up Care Test Results: Test results from this visit will be discussed in further detail at your follow- up appointment, if applicable. Discharge Plan Admission Admit Date/Time: 05/16/22 05:19 Attending Provider: Nathan Patel Primary Care Provider: Silvia Trivedi Discharge Orders/Prescriptions Prescriptions: Continued atorvastatin 40 mg tablet 40 mg PO QDAY benazepril 20 mg tablet 20 mg PO QDAY aspirin 81 mg tablet,delayed release (DR/EC) 81 mg PO QDAY multivitamin capsule capsule 1 cap PO QAM cholecalciferol (vitamin D3) 1,000 unit capsule 400 unit PO DAILY ascorbic acid (vitamin C) 500 mg capsule 500 mg PO DINNER zinc 50 mg tablet 50 mg PO DAILY omega 4-knh-fpy-fish oil [Fish Oil] 60-90-500 mg Capsule 1 cap PO DAILY clopidogrel [Plavix] 75 mg tablet 75 mg PO DAILY Referrals / Follow Up: Silvia Trivedi DO [Primary Care Provider] - Disposition Disposition (needs filled in before D/C Order can be placed): Home, Self Care
--- NOTE | 2022-05-17 09:38 | PCM.DC.SUM ---
Providers Date of Admission: 05/16/22 Primary Care Physician: Silvia Trivedi DO Reason For Visit: RT FEMORAL ENDARTERECTOMY Diagnosis Discharge Diagnosis (1) PAOD (peripheral arterial occlusive disease): Status: Acute Code(s): I77.9 - Disorder of arteries and arterioles, unspecified Plan: -POD # 1 right femoral endart, iliac stent, sartoriuous -dc art line, progressive ambulation -dc home Medications at Discharge Home Medications ascorbic acid (vitamin C) 500 mg capsule 500 mg PO DINNER SUPPLEMENT 08/31/17 aspirin 81 mg tablet,delayed release 81 mg PO QDAY HEART 08/31/17 atorvastatin 40 mg tablet 40 mg PO QDAY CHOLESTEROL 08/31/17 benazepril 20 mg tablet 20 mg PO QDAY HYPERTENSION 08/31/17 cholecalciferol (vitamin D3) 25 mcg (1,000 unit) capsule 400 unit PO DAILY SUPPLEMENT 08/31/17 multivitamin 1 cap PO QAM SUPPLEMENT 08/31/17 zinc 50 mg tablet 50 mg PO DAILY SUPPLEMENT 12/27/21 clopidogrel 75 mg tablet (Plavix) 75 mg PO DAILY HEART 03/08/22 omega 8-gnx-ppy-fish oil 60 mg-90 mg-500 mg capsule (Fish Oil) 1 cap PO DAILY SUPPLEMENT 03/08/22 Hospital Course Operations - (right femoral endarterectomy, right external iliac stent, right sartorius flap) Summary of Care Provided Hospital Course: Mr. Magdaleno presented for elective right femoral endarterectomy and iliac stent on 05/16/22 for lifestyle limiting claudication. He tolerated the procedure well and was admitted to the ICU for hemodynamic monitoring and serial vascular exams. Overnight he was hemodynamically stable, making adequate UOP, voiding without difficulty. On POD # 1 he was ambulating to chair, tolerating regular diet, with satisfactory pain control. Invasive monitors where then removed, IV fluids and medications discontinued, and progressive ambulation undertaken. He was discharged to home in satisfactory condition on 05/17/22. Physical Exam Const alert, oriented x3, no apparent distress and healthy appearing General Appearance: cooperative; Negative for combative or lethargic Orientation / Consciousness: awake Exam Limitations: no limitations HEENT Head and Scalp: normocephalic and atraumatic Eyes EOMs intact bilaterally General Eye: normal appearance of both eyes Neck full ROM General: trachea midline Resp normal respiratory effort and no use of accessory muscles Effort and Inspection: Negative for labored, stridor or audible wheezes Cardio regular rate and regular rhythm Back/Spine Cervical Spine: cervical ROM normal Extremity full ROM, normal capillary refill and no clubbing, cyanosis or edema Skin no rashes or lesions noted and no wounds Neuro oriented x3, CN's II-XII intact bilaterally, no focal motor deficits and no sensory deficits noted Psych thought process normal, cooperative, affect normal, speech normal and activity/motor behavior normal Weight / BMI Weight Weight: 156 lb 1 oz Body Mass Index (BMI) 25.9 ABG / Lab / Microbiology Data Result Diagrams: 05/17/22 04:03 05/17/22 04:03 Laboratory: Laboratory Results - last 24 hr 05/16/22 07:59: Activated Clotting Time 121 05/16/22 09:34: Activated Clotting Time 231 H 05/16/22 10:12: Activated Clotting Time 208 H 05/16/22 10:47: Activated Clotting Time 190 H 05/16/22 11:30: Activated Clotting Time 190 H 05/16/22 12:06: Activated Clotting Time 208 H 05/17/22 04:03: WBC 8.7, RBC 3.67 L, Hgb 11.4 L, Hct 36.2 L, MCV 98.6 H, MCH 31.1, MCHC 31.5 L, RDW Std Deviation 50.4 H, RDW Coeff of Semaj 13.8, Plt Count 245, MPV 9.1, Immature Gran % (Auto) 0.500, Neut % (Auto) 66.9, Lymph % (Auto) 22.6, [place] % (Auto) 8.3, Eos % (Auto) 1.4, Baso % (Auto) 0.3, Absolute Neuts (auto) 5.8, Absolute Lymphs (auto) 1.97, Nucleated RBC % 0 05/17/22 04:03: Sodium 131 L, Potassium 3.7, Chloride 102, Carbon Dioxide 22.0, Anion Gap 7, BUN 13, Creatinine 0.67 L, Estim Creat Clear Calc 59.79, Est GFR (MDRD) Af Amer 151, Est GFR (MDRD) Non-Af 125, BUN/Creatinine Ratio 19.4, Glucose 86, Calcium 6.6 L, Phosphorus 2.3 L, Magnesium 1.6 Radiography Diagnostic Testing: Radiology Impression Fluoroscopy 05/16/22 11:10 IMPRESSION: Intraoperative angiography for angioplasty and stent placement of the right external iliac artery/common femoral artery stenosis. Electronically Signed: Mike Pierson MD at 13:04 EDT , D/C Instructions Discharge Diet: No restrictions May shower in (days): 1 Weight Bearing Status: Weight bearing as tolerated Call your doctor if your incision/area has: Sudden Increased Bleeding, Increased Pain/ Swelling, Increased Redness and Foul Smelling Discharge Call your doctor if you observe: Fever of 101 or Higher Meaningful Use Info Meaningful Use Diagnoses (Choose all that apply): None applicable Discharge Plan Admission Admit Date/Time: 05/16/22 05:19 Attending Provider: Nathan Patel Primary Care Provider: Silvia Trivedi Discharge Orders/Prescriptions Prescriptions: Continued atorvastatin 40 mg tablet 40 mg PO QDAY benazepril 20 mg tablet 20 mg PO QDAY aspirin 81 mg tablet,delayed release (DR/EC) 81 mg PO QDAY multivitamin capsule capsule 1 cap PO QAM cholecalciferol (vitamin D3) 1,000 unit capsule 400 unit PO DAILY ascorbic acid (vitamin C) 500 mg capsule 500 mg PO DINNER zinc 50 mg tablet 50 mg PO DAILY omega 9-rud-dtm-fish oil [Fish Oil] 60-90-500 mg Capsule 1 cap PO DAILY clopidogrel [Plavix] 75 mg tablet 75 mg PO DAILY Referrals / Follow Up: Silvia Trivedi, [Primary Care Provider] - Disposition Disposition (needs filled in before D/C Order can be placed): Home, Self Care
--- NOTE | 2022-05-17 09:50 | CASEMGMT ---
RN CM Face to Face with patient for initial transition planning/care coordination assessment. RN CM introduced self and role at [facility]. Patient sitting in chair, alert and oriented, daughter at bedside. Patient willing to participate in assessment and is able to answer all questions appropriately. Care providers, pharmacy, and demographics verified. Patient wishes to discharge home, denies need for home health at this time. Patient states he has no further needs or concerns at this time. CM to follow for discharge planning needs that may arise. PCP: Farooq Specialists: roxana Patel Pharmacy: [facility] Insurance: [facility] Prescription Benefit: yes Living Will/HPOA: yes, cate Beyer, HPOA LNOK: daughter, son Living Arrangements: Patient lives alone in a single story home with 2 steps and railing to enter the home. Patient states he is independent at home. Transportation: self, daughter DME/HHC: Patient denies DME in the home. Patient denies previous HHC Disposition Plan: Patient to discharge home with family support and follow-up plans in place. Ami SILVEIRAN, RN, CM
== END 2022-05-17 10:45 | disposition home or self-care (01) | DRG 254 ==
LOC: ACINP 06:11 → ICU 13:20
PROVIDERS: Admitting Provider Surgery Trauma Surgery; PCP Family Medicine; Referring Provider Surgery Trauma Surgery; Visit Provider Surgery Trauma Surgery
PROC: 04CK0ZZ Extirpation of Matter from Right Femoral Artery, Open Approach (ICD-10-PCS; principal; 2022-05-16 07:10)
DX: I70.211 Atherosclerosis of native arteries of extremities with intermittent claudication, right leg (principal); E78.00 Pure hypercholesterolemia, unspecified; F17.210 Nicotine dependence, cigarettes, uncomplicated; I10 Essential (primary) hypertension; K21.9 Gastro-esophageal reflux disease without esophagitis; Z79.82 Long term (current) use of aspirin; Z79.02 Long term (current) use of antithrombotics/antiplatelets; Z79.899 Other long term (current) drug therapy; Z86.73 Personal history of transient ischemic attack (TIA), and cerebral infarction without residual deficits
CPT/HCPCS: 36415; 71046; 76000; 80048; 83735; 84100; 85025; 85027; 85347; 86850; 86900; 86901; 88304; 88311; 93005; 97802; 99251; C1769; C1894; J7040; J7120; A4216; C1725; G0463; J2405

== ENCOUNTER → 2022-06-16 | Outpatient (CLI) | payer MEDICARE, SELFPAY ==
--- NOTE | 2022-06-16 12:50 | ART_ITS ---
Reason For Study: Claudication Procedure A bilateral lower extremity continuous wave Doppler with analog waveform analysis,segmental pressures,and ankle brachial indexes with exercise. Left Segmental Pressures Left brachial= 129mmHg. Left thigh = 136mmHg. Left calf = 119mmHg. Left posterior tibial artery = 121mmHg. Left dorsalis pedis artery = 116mmHg. Left digit = 91 mmHg. The left dorsalis pedis waveforms are triphasic. The left posterior tibial artery waveforms are triphasic. Right Segmental Pressures Right brachial= 133mmHg. Right thigh = 106mmHg. Right calf = 68mmHg. Right posterior tibial artery = 66mmHg. Right dorsalis pedis artery = 72mmHg. Right digit = 42 mmHg. The right dorsalis pedis waveforms are monophasic. The right posterior tibial artery waveforms are biphasic. Indices The right ankle brachial index by the dorsalis pedis is 0.54. The right ankle brachial index by the posterior tibial artery is 0.50. The right digital-brachial index is 0.32. The right post exercise ankle brachial index is 0.23. The left ankle brachial index by the dorsalis pedis is 0.87. The left ankle brachial index by the posterior tibial artery is 0.91. The left digital-brachial index is 0.68. The left post exercise ankle brachial index is 0.82. VL/Lower Ext Art Exam w/ Exercise Interpretation Summary Right LD 0.54, devere arterial insufficiency. Doppler/PVR waveforms of the rig ht leg reveal aorto- iliac/femoral and distal SFA/popliteal disease. Right lower extremity exhibits abnormal response to exercise. Left LD 0.91, mild arterial insufficiency. Doppler/PVR waveforms of the left l eg reveal distal SFA/popliteal disease. Left lower extremity exhibits normal response to exercise. Ordering Physician: Nathan Patel Referring Physician: Silvia Trivedi Performed By: Ami Parekh RVT
== END | disposition home or self-care (01) ==
LOC: CVS 12:49
PROVIDERS: PCP Family Medicine; Referring Provider Surgery Trauma Surgery; Visit Provider Surgery Trauma Surgery
DX: I73.9 Peripheral vascular disease, unspecified (principal)
CPT/HCPCS: 93924

== ENCOUNTER → 2022-09-29 | Outpatient (CLI) | payer MEDICARE, SELFPAY ==
[2022-09-29 10:32] LABS: Absolute Lymphocyte Count 1.95 X10^3/uL (0.83-4.51); Absolute Neutrophil Count 5.6 X10^3/uL (2.0-7.7); Basophil# 0.09 X10^3/uL; Basophil% 1.1 % (0-1); Eosinophil# 0.28 X10^3/uL; Eosinophils% 3.3 % (0-5); Hematocrit 51.4 % (40-54); Hemoglobin 16.7 g/dL (13.0-16.5); Lymphocyte # 1.95 X10^3/ul (0.83-4.51); Lymphocyte % 22.8 % (19-41); Mean Corp Hgb Conc 32.5 g/dL (32-36); Mean Corpuscular Hgb 30.5 pg (27.0-32.0); Mean Corpuscular Volume 93.8 fL (80-94); Mean Platelet Vol. 9.6 fl (6.2-12.0); Monocyte# 0.59 X10^3/uL; Monocyte% 6.9 % (0-10); NRBC Flagged by Analyzer 0 % (0-5); Neutrophil % 65.3 % (47-70); Platelet Count 320 K/mm3 (150-450); RBC Distribution Width CV 15.1 % (11.6-14.6); RBC Distribution Width SD 52.6 fl (35.1-43.9); Red Blood Count 5.48 M/mm3 (4.6-6.2); White Blood Count 8.6 K/mm3 (4.4-11.0)
[2022-09-29 10:53] LABS: ALB/GLOB Ratio 0.9 RATIO (0.9-2.4); AST(SGOT) 17 U/L (15-37); Alanine Aminotransfer ALT/SGPT 28 U/L (16-61); Albumin, Serum 3.6 g/dL (3.2-5.0); Alkaline Phosphatase 115 U/L (45-117); Anion Gap 6 (5-15); BUN 16 mg/dL (7-18); BUN/Creat Ratio 16.2 RATIO (10-20); Calcium,Total 9.1 mg/dL (8.5-10.1); Chloride 108 mmol/L (98-107); Cholesterol 157 mg/dL (200); Creatinine, Serum 0.99 mg/dL (0.70-1.30); EST Glomerular Filtration Rate 79 mL/min (>60); Est Glom Filt Rate - Afr Amer 96 mL/min (>60); Globulin 4.2 g/dL (2.2-4.2); Glucose 97 mg/dL (74-106); High Density Lipoprotein 49 mg/dL; PSA,Total - Annual Screen 1.13 ng/mL (0.00-4.00); Potassium 4.3 mmol/L (3.5-5.1); Protein, Total 7.8 g/dL (6.4-8.2); Sodium Level 139 mmol/L (136-145); Thyroid Stim Hormone (TSH) 0.66 uIU/mL (0.358-3.74); Triglycerides 100 mg/dL; Very Low Density Lipoprotein 20 mg/dL (5-40)
[2022-09-29 11:01] LABS: Microalbumin,Random Urine 8.3 mg/L (NO RANGE EST.)
== END | disposition home or self-care (01) ==
LOC: MTLAB 08:14
PROVIDERS: PCP Family Medicine; Referring Provider Family Medicine; Visit Provider Family Medicine
DX: I10 Essential (primary) hypertension (principal); E78.00 Pure hypercholesterolemia, unspecified; Z12.5 Encounter for screening for malignant neoplasm of prostate; N52.9 Male erectile dysfunction, unspecified
CPT/HCPCS: 36415; 80053; 80061; 82043; 84153; 84443; 85025; G0103

== ENCOUNTER 2022-12-04 17:30 | Emergency (ER) | payer MEDICARE, SELFPAY ==
[2022-12-04 17:31] VITALS: BP 159/96; PULSE 91; RESP 24; TEMP 36.1; O2SAT 93; BMI 26.3
[2022-12-04] MEDS: Ipratropium/Albuterol Sulfate 3 ML AMPUL.NEB INHALATION (17:47)
[2022-12-04] MEDS: Albuterol 2.5 MG/3 ML VIAL.NEB. INHALATION (17:47)
[2022-12-04 17:54] VITALS: BP 159/96; PULSE 85; PULSE 91; RESP 18; RESP 24; TEMP 36.1; O2SAT 93
--- NOTE | 2022-12-04 17:56 | EDS_ITS ---
HPI <ROBY Mercedes - Last Filed: 12/04/22 19:11> History of Present Illness Chief Complaint: Shortness of Breath Narrative Narrative: Patient is a 72-year-old male with history of hypertension, CAD, hyperlipidemia presents the emergency department with 4 to 5 days of increasing shortness of breath. Patient states he does get the coughing fits where it is difficult for him to catch his breath. He does smoke a pack to a pack and a half a day. He has no history of any COPD or asthma. Patient is here with his daughter who states that over the last 2 days he has been having more short of breath, struggling doing daily activities. Patient was working today, when he just could not catch his breath. Patient does appear to be in some obvious distress, patient does have some communication dyspnea. He denies any fever or chills. PFSH <ROBY Mercedes - Last Filed: 12/04/22 19:11> [facility] Medical History Alcohol use Bilateral carotid artery stenosis COVID-19 (08/11/21) Easy bruising Essential hypertension GERD (gastroesophageal reflux disease) High cholesterol Hyperlipidemia Hypertension Peripheral vascular disease of extremity with claudication Smoker Stroke/cerebrovascular accident Tobacco abuse Wears glasses Home Medications ascorbic acid (vitamin C) 500 mg capsule 500 mg PO DINNER SUPPLEMENT 08/31/17 [History Last Taken 03/15/22] aspirin 81 mg tablet,delayed release 81 mg PO QDAY HEART 08/31/17 [History Last Taken 05/15/22] atorvastatin 40 mg tablet 40 mg PO QDAY CHOLESTEROL 08/31/17 [History Last Taken 05/15/22] benazepril 20 mg tablet 20 mg PO QDAY HYPERTENSION 08/31/17 [History Last Taken 05/16/22 04:00] cholecalciferol (vitamin D3) 25 mcg (1,000 unit) capsule 1,000 unit PO DAILY SUPPLEMENT 08/31/17 [History Last Taken 05/15/22] multivitamin 1 cap PO QAM SUPPLEMENT 08/31/17 [History Last Taken 05/15/22] zinc 50 mg tablet 50 mg PO DAILY SUPPLEMENT 12/27/21 [History Last Taken 05/15/22] clopidogrel 75 mg tablet (Plavix) 75 mg PO DAILY HEART 03/08/22 [History Last Taken 05/16/22 04:00] omega 8-wrb-qkk-fish oil 60 mg-90 mg-500 mg capsule (Fish Oil) 1 cap PO DAILY SUPPLEMENT 03/08/22 [History Last Taken 05/15/22] albuterol sulfate 90 mcg/actuation breath activated powder inhaler 2 inh inhalation Q4H PRN shortness of breath #1 ea 12/04/22 [Rx Last Taken Unknown] doxycycline hyclate 100 mg capsule 100 mg PO BID 7 days #14 caps 12/04/22 [Rx Last Taken Unknown] prednisone 50 mg tablet 50 mg PO DAILY #5 tabs 12/04/22 [Rx Last Taken Unknown] Allergy/AdvReac Type Severity Reaction Status Date / Time No Known Allergies Allergy Verified 12/04/22 17:32 Family History Father Heart disease Hypertension Sudden cardiac , Onset Age: 48 Mother Hypertension CAD (coronary artery disease) Aunt Cancer Grandmother Cancer Surgical History History of angioplasty of peripheral vessel (01/26/22) History of carotid angioplasty History of right-sided carotid endarterectomy (2012) Hx of surgical procedure Social History Smoking Status: Current every day smoker tobacco type: cigarettes Tobacco: How many years used: 51 alcohol intake: current alcohol intake frequency: a few times a week Alcohol type: beer ROS <ROBY Mercedes - Last Filed: 12/04/22 19:11> [facility] Narrative Constitutional: Negative for fever, chills, weight loss, weakness Eyes: Negative for vision loss, vision change, double vision ENT: Negative for any sore throat, ear pain, congestion Cardiovascular: Negative for any chest pain, tightness, palpitations Respiratory: Negative for any, sputum production, hemoptysis. Positive for dyspnea, dyspnea on exertion, orthopnea Gastrointestinal: Negative for any abdominal pain, nausea, vomiting, diarrhea, constipation, blood in stool, blood in vomit : Negative for any urinary frequency, dysuria, retention, blood in urine Muscle skeletal: Negative for any muscle joint pain, stiffness, myalgias, arthralgias, neck pain, back pain Neurological: Negative for any headache, syncope, numbness or tingling, dizziness Skin: Negative for any rashes, lumps, itching, abrasions, lacerations Psychiatric: Negative for any depression, anxiety, stress, suicidal ideation, homicidal ideation Hematologic: Negative for any easy bruising, excessive bruising, easy bleeding Allergies: Negative for any eczema, hives, rash EXAM <Fernie ReddyLEANN-C - Last Filed: 12/04/22 19:11> Physical Exam Narrative Exam Narrative: Vital signs reviewed. Patient is tachypneic, patient has obvious signs of dyspnea with communication dyspnea. Patient is tripoding. Patient's oxygen saturation was 93%. HEET: Head normocephalic atraumatic, TMs clear bilaterally. Posterior pharynx is clear, moist mucous membranes. Nares clear bilaterally. Neck: Supple with no lymphadenopathy or tenderness. No signs of meningismus, negative jolt sign. Cardiac: Regular rate and rhythm no murmurs gallops or rubs, equal peripheral pulses bilaterally. Respiratory: Expiratory wheezes, patient on initial evaluation did have some tightness in his respiratory exam. No chest tenderness. Abdomen: Soft, nontender, nondistended. No abdominal bruit or pulsatile masses. No hepatosplenomegaly Extremities: No peripheral edema, no signs of gross trauma or deformity. Active full range of motion of all extremities. Neuro: Cranial nerves II through XII intact, no focal neurological deficits. Skin: Clean dry and intact with no rash, purpura, petechiae, vesicles or pustules. Backs/flank: No CVA tenderness, no midline spinal tenderness, no deformity. Psych: Normal mood and affect. No SI, HI or acute psychosis. Const Vital Signs: 12/04/22 17:31 12/04/22 17:54 12/04/22 17:54 Temperature 97 F L 97 F L Temperature Source Temporal Temporal Pulse Rate 91 85 91 Respiratory Rate 24 H 18 24 H Respiratory Effort Respiratory Depth Respiratory Pattern Normal Blood Pressure 159/96 H 159/96 H Blood Pressure Mean 117 117 Pulse Ox 93 93 Oxygen Delivery Method Room Air Room Air 12/04/22 18:03 12/04/22 18:47 Temperature 98.1 F Temperature Source Temporal Pulse Rate 78 Respiratory Rate 20 H Respiratory Effort Short of Breath Respiratory Depth Normal Respiratory Pattern Normal Blood Pressure 122/63 H Blood Pressure Mean 82 Pulse Ox 92 Oxygen Delivery Method Room Air <Dr. Hussein Jain MD - Last Filed: 12/04/22 19:25> Physical Exam Const Vital Signs: 12/04/22 17:31 12/04/22 17:54 12/04/22 17:54 Temperature 97 F L 97 F L Temperature Source Temporal Temporal Pulse Rate 91 85 91 Respiratory Rate 24 H 18 24 H Respiratory Effort Respiratory Depth Respiratory Pattern Normal Blood Pressure 159/96 H 159/96 H Blood Pressure Mean 117 117 Pulse Ox 93 93 Oxygen Delivery Method Room Air Room Air 12/04/22 18:03 12/04/22 18:47 Temperature 98.1 F Temperature Source Temporal Pulse Rate 78 Respiratory Rate 20 H Respiratory Effort Short of Breath Respiratory Depth Normal Respiratory Pattern Normal Blood Pressure 122/63 H Blood Pressure Mean 82 Pulse Ox 92 Oxygen Delivery Method Room Air MDM <ROBY Mercedes - Last Filed: 12/04/22 19:11> MDM Lab Data Labs: Laboratory Results - last 24 hr 12/04/22 12/04/22 12/04/22 17:30 17:30 17:30 WBC 9.1 RBC 5.04 Hgb 15.7 Hct 47.8 MCV 94.8 H MCH 31.2 MCHC 32.8 RDW Std Deviation 47.9 H RDW Coeff of Semaj 13.7 Plt Count 377 MPV 9.1 Immature Gran % (Auto) 0.700 Neut % (Auto) 63.1 Lymph % (Auto) 24.8 [place] % (Auto) 7.4 Eos % (Auto) 3.1 Baso % (Auto) 0.9 Absolute Neuts (auto) 5.7 Absolute Lymphs (auto) 2.25 Nucleated RBC % 0 Sodium 137 Potassium 4.1 Chloride 107 Carbon Dioxide 25.0 Anion Gap 5 BUN 13 Creatinine 1.01 Estim Creat Clear Calc 59.20 Est GFR (MDRD) Af Amer 94 Est GFR (MDRD) Non-Af 78 BUN/Creatinine Ratio 12.9 Glucose 115 H Calcium 9.1 B-Natriuretic Peptide 60.2 Radiography Diagnostic Testing: Clinical Impression(s) from Imaging Studies Chest X-Ray 12/04/22 18:05 IMPRESSION: No acute radiographic abnormalities. Chronic lung changes. Electronically Signed: Spencer Pearl MD at 18:43 EDT , EKG Sinus rhythm: Attestation: I personally reviewed and interpreted this EKG as follows: Comments: EKG shows sinus rhythm, rate of 85 bpm, TN 182 ms, QRS duration 82 ms, no acute ST elevation, no acute infarct or Differential Diagnosis Differential Diagnosis: Community-acquired pneumonia Why less likely: Negative chest x-ray Differential Diagnosis: Pulmonary embolus Why less likely: Negative for travel, frequent cough, 1.5 pack a day smoker Treatment and Re-Evaluation :: All radiologic examinations were read, reviewed by the emergency department attending. From these reads, a plan of care will be put in place. Patient on initial arrival to be in mild respiratory distress, patient was tripoding, as well as having communication dyspnea. Patient had no fever or chills. No evidence of any bacterial infection.Patient did receive a full respiratory work-up. As well as the laboratory values. Patient's chest x-ray two-view showed chronic changes however no acute process, no infiltrate. Patient's laboratory values showed normal CBC, normal chemistries. Patient is negative for any COVID-19 or influenza. Negative for any ACS, TN. EKG was unremarkable. Patient received aerosol treatments as well as IV steroids. Patient did improve greatly. Patient was moving more air. Patient's oxygen was 94%. Patient is no longer tripoding, able to have a better conversation, he looks more relaxed. Patient and his daughter both feel comfortable for the patient going home. He does have a border inspector which she will see outpatient. At this time, patient will be given prednisone burst, doxycycline, as well as albuterol inhaler. I explained to the patient as well as the daughter for reasons to return. Patient verbally understands, all questions answered. At this time there is no evidence to suspect any bacterial pneumonia, pulmonary embolus, pneumothorax. Patient stable for discharge <Dr. Hussein Jain MD - Last Filed: 12/04/22 19:25> [facility] Lab Data Attestation: I reviewed the patient's lab results. Labs: Laboratory Results - last 24 hr 12/04/22 12/04/22 12/04/22 17:30 17:30 17:30 WBC 9.1 RBC 5.04 Hgb 15.7 Hct 47.8 MCV 94.8 H MCH 31.2 MCHC 32.8 RDW Std Deviation 47.9 H RDW Coeff of Semaj 13.7 Plt Count 377 MPV 9.1 Immature Gran % (Auto) 0.700 Neut % (Auto) 63.1 Lymph % (Auto) 24.8 [place] % (Auto) 7.4 Eos % (Auto) 3.1 Baso % (Auto) 0.9 Absolute Neuts (auto) 5.7 Absolute Lymphs (auto) 2.25 Nucleated RBC % 0 Sodium 137 Potassium 4.1 Chloride 107 Carbon Dioxide 25.0 Anion Gap 5 BUN 13 Creatinine 1.01 Estim Creat Clear Calc 59.20 Est GFR (MDRD) Af Amer 94 Est GFR (MDRD) Non-Af 78 BUN/Creatinine Ratio 12.9 Glucose 115 H Calcium 9.1 B-Natriuretic Peptide 60.2 Radiography Diagnostic Testing: Clinical Impression(s) from Imaging Studies Chest X-Ray 12/04/22 18:05 IMPRESSION: No acute radiographic abnormalities. Chronic lung changes. Electronically Signed: Spencer Pearl MD at 18:43 EDT , Treatment and Re-Evaluation Comments:: Seen and evaluated independently and in conjunction with nurse practitioner. Agree with notes above unless documented otherwise. Patient with about 1.5 weeks of progressively worsening dyspnea with exertion, conversation now, and with coughing fits. Cough is mostly nonproductive. No fevers or chills. No known history of COPD or asthma but he is a longtime heavy smoker at 72 years old. No known heart problems but he does have PAD and is on clopidogrel. Exam: Diffusely diminished breath sounds, symmetric, trachea midline, and expiratory wheezes throughout. Conversational dyspnea but no distress. No leg edema no JVD. The x-ray shows no acute infiltrates, the rest of his work-up is unremarkable and he got better with aerosols, we are going to treat empirically with steroids and antibiotics for the potential for chronic obstructive pulmonary disease of some sort, he understands we cannot do pulmonary function test nor does he need to be admitted right now so we are going to treat him with antibiotics and steroids and an albuterol inhaler and he will follow-up. He is comfortable to plan. Discharge Plan Triage Chief Complaint: Shortness of Breath ED Midlevel Provider: Fernie Reddy ED Provider: Hussein Jain Dx/Rx/DC Orders Clinical Impression: Acute bronchitis with bronchospasm Instructions: Asthma and COPD Prescriptions: New prednisone 50 mg tablet 50 mg PO DAILY Qty: 5 0RF doxycycline hyclate 100 mg capsule 100 mg PO BID 7 Days Qty: 14 0RF albuterol sulfate 90 mcg/actuation aerosol powdr breath activated 2 inh inhalation Q4H PRN (Reason: shortness of breath) Qty: 1 1RF No Action atorvastatin 40 mg tablet 40 mg PO QDAY benazepril 20 mg tablet 20 mg PO QDAY aspirin 81 mg tablet,delayed release (DR/EC) 81 mg PO QDAY multivitamin capsule capsule 1 cap PO QAM cholecalciferol (vitamin D3) 1,000 unit capsule 1,000 unit PO DAILY ascorbic acid (vitamin C) 500 mg capsule 500 mg PO DINNER zinc 50 mg tablet 50 mg PO DAILY omega 4-gme-vcs-fish oil [Fish Oil] 60-90-500 mg Capsule 1 cap PO DAILY clopidogrel [Plavix] 75 mg tablet 75 mg PO DAILY Primary Care Provider: Silvia Trivedi Referrals: Silvia Trivedi, DO [Primary Care Provider] - Activity Restrictions/Additional Instructions: Please take medications as prescribed. Follow-up with your border inspector. Please return for worsening shortness of breath. Disposition Disposition: Home, Self Care
[2022-12-04] MEDS: MethylPREDNISolone 125 MG/2 ML Vial IV (17:58)
--- NOTE | 2022-12-04 18:05 | RAD_ITS ---
INDICATION: cough EXAMINATION/TECHNIQUE: X-RAY - XR Chest 2 Views COMPARISON: 05/10/2022. FINDINGS: Streaky opacities in the left lung base most likely represent atelectasis. Tortuous and calcified thoracic aorta. The heart is not enlarged. No pleural effusion or pneumothorax. Degenerative changes of the thoracic spine. RAD/Chest PA and Lateral IMPRESSION: No acute radiographic abnormalities. Chronic lung changes. Electronically Signed: Spencer Pearl MD at 18:43 EDT ,
[2022-12-04 18:12] LABS: Absolute Lymphocyte Count 2.25 X10^3/uL (0.83-4.51); Absolute Neutrophil Count 5.7 X10^3/uL (2.0-7.7); Anion Gap 5 (5-15); BUN 13 mg/dL (7-18); BUN/Creat Ratio 12.9 RATIO (10-20); Basophil# 0.08 X10^3/uL; Basophil% 0.9 % (0-1); Calcium,Total 9.1 mg/dL (8.5-10.1); Chloride 107 mmol/L (98-107); Creatinine, Serum 1.01 mg/dL (0.70-1.30); EST Glomerular Filtration Rate 78 mL/min (>60); Eosinophil# 0.28 X10^3/uL; Eosinophils% 3.1 % (0-5); Est Glom Filt Rate - Afr Amer 94 mL/min (>60); Glucose 115 mg/dL (74-106); Hematocrit 47.8 % (40-54); Hemoglobin 15.7 g/dL (13.0-16.5); Lymphocyte # 2.25 X10^3/ul (0.83-4.51); Lymphocyte % 24.8 % (19-41); Mean Corp Hgb Conc 32.8 g/dL (32-36); Mean Corpuscular Hgb 31.2 pg (27.0-32.0); Mean Corpuscular Volume 94.8 fL (80-94); Mean Platelet Vol. 9.1 fl (6.2-12.0); Monocyte# 0.67 X10^3/uL; Monocyte% 7.4 % (0-10); NRBC Flagged by Analyzer 0 % (0-5); Neutrophil # 5.73 X10^3/uL (2.7-7.7); Neutrophil % 63.1 % (47-70); Platelet Count 377 K/mm3 (150-450); Potassium 4.1 mmol/L (3.5-5.1); RBC Distribution Width CV 13.7 % (11.6-14.6); RBC Distribution Width SD 47.9 fl (35.1-43.9); Red Blood Count 5.04 M/mm3 (4.6-6.2); Sodium Level 137 mmol/L (136-145); White Blood Count 9.1 K/mm3 (4.4-11.0)
[2022-12-04 18:32] LABS: BNP,B-Type NATRIURETIC PEPTIDE 60.2 pg/mL (0-100)
[2022-12-04 18:47] VITALS: BP 122/63; PULSE 78; RESP 20; TEMP 36.7; O2SAT 92
== END 2022-12-04 19:44 | disposition home or self-care (01) ==
PROVIDERS: Nurse Practitioner; Emergency Provider Emergency Medicine; PCP Family Medicine; Visit Provider Emergency Medicine
DX: J20.9 Acute bronchitis, unspecified (principal); I10 Essential (primary) hypertension; E78.00 Pure hypercholesterolemia, unspecified; I25.10 Atherosclerotic heart disease of native coronary artery without angina pectoris; F17.210 Nicotine dependence, cigarettes, uncomplicated; Z79.82 Long term (current) use of aspirin; Z79.02 Long term (current) use of antithrombotics/antiplatelets; Z86.73 Personal history of transient ischemic attack (TIA), and cerebral infarction without residual deficits; Z98.61 Coronary angioplasty status
CPT/HCPCS: 71046; 80048; 83880; 85025; 87428; 93005; 94640; 96374; 99283; A4216

== ENCOUNTER → 2022-12-29 | Outpatient (CLI) | payer MEDICARE, SELFPAY ==
--- NOTE | 2022-12-29 07:38 | CT_ITS ---
EXAM: CT CHEST, LUNG CANCER SCREENING WITHOUT INTRAVENOUS CONTRAST CLINICAL INDICATION: 51 pack year current smoker, COPD. age 72 TECHNIQUE: Helically acquired images were obtained of the chest without intravenous contrast using low dose (LDCT) lung cancer screening protocol. This CT exam was performed using one or more of the following dose reduction techniques: automated exposure control, adjustment of the mA and/or kV according to patient size, and/or use of iterative reconstruction technique. COMPARISON: CTA chest dated 01/11/2022 FINDINGS: LUNGS AND PLEURAL SPACES: There are emphysematous changes seen within the upper lobes. No mass. No pleural effusion or thickening. No pneumothorax. HEART: Unremarkable. Heart size is normal. No pericardial effusion. No significant coronary artery calcifications. MEDIASTINUM: Unremarkable. No mediastinal or hilar adenopathy. Esophagus is unremarkable. No hiatal hernia. THYROID: Unremarkable. No thyroid lesions. BONES/JOINTS: Unremarkable. No suspicious lytic or blastic abnormality. VASCULATURE: Unremarkable. Thoracic aorta is non-dilated. LYMPH NODES: Unremarkable. No enlarged lymph nodes. CT/Low Dose CT Lung Screening IMPRESSION: Emphysematous changes in the lung apices. There are no acute pulmonary abnormalities. There are no pulmonary nodules. Lung-RADS score: 1 - Recommend continued annual screening with a low-dose CT (LDCT) in 12 months. Electronically Signed: Roger Webb MD at 0:00 EDT ,
--- NOTE | 2022-12-29 10:34 | PFTCOMP ---
COMPLETE PULMONARY FUNCTION TEST INTERPRETATION Brief HPI: Patient is a 72-year-old male, currently under the care of Dr. Gutierrez, who presents to [facility] for complete pulmonary function tests secondary to diagnosis of COPD. Respiratory therapist reports good effort and reproducible results. Interpretation: Forced expiration spirometry shows a moderate large airways obstructive ventilatory defect with an FEV1 of 67% predicted. There is no significant bronchodilator response by strict ATS criteria. Spirograms are of good quality and plateau slowly, indicating slowly emptying areas of the lungs. The respiratory flow volume loop shows decreased expiratory flow rates at all lung volumes consistent with airway obstruction. Lung volumes by body plethysmography show a normal total lung capacity at 5.87 L, 110% predicted. All other lung volumes are within normal limits. Diffusion capacity by carbon monoxide is normal at 71% predicted. The airway resistance is elevated. No previous pulmonary function tests were available for review. Impression: Irreversible moderate large airways obstructive ventilatory defect with a symmetric reduction in diffusion capacity
== END | disposition home or self-care (01) ==
LOC: PSN 07:35
PROVIDERS: PCP Family Medicine; Referring Provider Internal Medicine; Visit Provider Internal Medicine
DX: J44.9 Chronic obstructive pulmonary disease, unspecified (principal); Z87.891 Personal history of nicotine dependence
CPT/HCPCS: 71271; 94060; 94726; 94729

== ENCOUNTER → 2023-01-25 | Outpatient (CLI) | payer MEDICARE, SELFPAY ==
--- NOTE | 2023-01-25 09:44 | ART_ITS ---
Reason For Study: Claudication Procedure A bilateral lower extremity continuous wave Doppler with analog waveform analysis,segmental pressures,and ankle brachial indexes with exercise. Left Segmental Pressures Left brachial= 124mmHg. Left thigh = 118mmHg. Left calf = 113mmHg. Left posterior tibial artery = 112mmHg. Left dorsalis pedis artery = 107mmHg. Left digit = 85 mmHg. Right Segmental Pressures Right brachial= 123mmHg. Right thigh = 87mmHg. Right calf = 82mmHg. Right posterior tibial artery = 84mmHg. Right dorsalis pedis artery = 76mmHg. Right digit = 56 mmHg. Indices The right ankle brachial index by the posterior tibial artery is 0.68. The right ankle brachial index by the dorsalis pedis is 0.61. The right digital-brachial index is 0.45. The right ankle brachial index by the posterior tibial artery post exercise is 0.50. The left ankle brachial index by the posterior tibial artery is 0.90. The left ankle brachial index by the dorsalis pedis is 0.86. The left digital-brachial index is 0.69. The left posterior tibial artery index post exercise is 0.79. VL/Lower Ext Art Exam w/ Exercise Interpretation Summary Right LD 0.68, moderate arterial insufficiency. Doppler/PVR waveforms and segm ental pressures reveal itfao-kbshw-wfymevay femoral disease. Left LD 0.9, mild arterial insufficiency. Doppler/PVR waveforms and segmental pressures reveal [id number] femoral disease. Ordering Physician: Nathan Patel Referring Physician: Silvia Trivedi Performed By: Otilia Diaz RD/RVT
== END | disposition home or self-care (01) ==
LOC: CVS 09:41
PROVIDERS: PCP Family Medicine; Referring Provider Surgery Trauma Surgery; Visit Provider Surgery Trauma Surgery
DX: I73.9 Peripheral vascular disease, unspecified (principal); Z48.812 Encounter for surgical aftercare following surgery on the circulatory system
CPT/HCPCS: 93924